=== PATIENT | female | born 2000 | race Caucasian/White ===

== ENCOUNTER 2022-07-09 09:49 | Emergency (ER) | payer MEDICAID, SELFPAY ==
[2022-07-09 09:52] VITALS: BP 140/102; PULSE 82; RESP 16; TEMP 36.7; O2SAT 100
--- NOTE | 2022-07-09 10:35 | W.ED.GENADLT ---
HPI - General Adult General: Chief complaint: Allergic Reaction Stated complaint: possible allergic reaction, face swelling Time Seen by Provider: 07/09/22 09:58 Source: patient Mode of arrival: ambulatory Limitations: no limitations History of Present Illness: Patient is a 22-year-old female who presents to ED today with multiple complaints. She states over the past 3 weeks she has had 3 separate episodes of left retro-orbital pain/headache. She states the pain will last approximately 3 days before subsiding on its own. She states she is asymptomatic in between episodes. She states yesterday she had an episode of epistaxis which was uncharacteristic for her as she has never had a nosebleed before. It was easily controlled and subsided on its own. Denies nasal trauma. Reports no history of allergies. Patient states this morning she woke up and the left side of her face was swollen and swelling even extended down into her neck. She states she took 50 mg of Benadryl with full improvement of her swelling. Upon arrival to the ED she states swelling has fully resolved and is essentially asymptomatic. Onset (ago): hour(s) Location: face Severity: mild Relieving factors: other (benadryl) Exacerbating factors: none Associated symptoms: Reports headache(s) (none currently); Deny chest pain, dyspnea, nausea, rash or vomiting Treatments prior to arrival: other (benadryl) Review of Systems Const: Denies: fever(s), chills, body aches or fatigue Eyes: Denies: change in vision, blurry vision, photophobia, eye discomfort, eye discharge, eye redness, floaters or seeing flashes ENMT: Reports: epistaxis (subsided) and other (facial swelling-subsided now); Denies: throat pain, enlarged tonsils, odynophagia, mouth pain, swelling of lips/tongue, oral sores, ear or mastoid pain, ear discharge, nasal discharge, nasal congestion, post nasal drip or sinus pain Card: Denies: chest pain Resp: Denies: dyspnea, productive cough or non-productive cough GI: Denies: nausea or vomiting Musc: Denies: neck pain, back pain, extremity pain or joint pain Skin/Breast: Denies: rash Neuro: Reports: headache(s) (none currently); Denies: numbness in extremities, weakness in extremities or sensory changes All/Imm: Denies: facial swelling or seasonal rhinorrhea Physical Exam Const: COMMON NORMALS: no acute distress, average body habitus, patient oriented x3, no limitations, healthy appearing, alert and well nourished GENERAL APPEARANCE: cooperative ORIENTATION/CONSCIOUSNESS: Yes awake, Yes oriented to person, Yes oriented to place and Yes oriented to time HENMT: COMMON NORMALS: normocephalic, atraumatic, hearing grossly normal bilaterally, external ears normal, EAC's normal, TM's normal bilaterally, Normal external nose present, moist oral mucous membranes, oropharynx normal, dentition normal and gingiva normal HEAD & SCALP: normal to inspection, normocephalic and atraumatic FACE & SINUS: normal facial exam, sinuses nontender and face symmetric NOSE: Normal external nose present, No nasal polyps present, Normal septum present and Abnormal mucous membranes and turbinates present erythematous; no Nasal discharge present and no Epistaxis present EXTERNAL EAR: Yes external ears normal EXTERNAL AUDITORY CANAL: EAC's normal TYMPANIC MEMBRANE: TM's normal bilaterally MOUTH: Normal oral and palatal mucosa present, lip normal and tongue normal TEETH & GINGIVA: Yes fair dentition; no caries THROAT: posterior oropharynx normal, tonsils normal and uvula midline Eye: COMMON NORMALS: Equal, round and reactive pupils present, EOMs intact bilaterally and conjunctivae normal GENERAL EYE: appearance normal, both eyes and all related structures and normal light reflex CONJUNCTIVA: Yes conjunctivae normal PUPIL: Yes Equal, round and reactive pupils present DIRECT OPHTHALMOSCOPY: Yes normal light reflex Neck/C-Spine: COMMON NORMALS: full ROM, no lymphadenopathy and no meningeal signs Resp: COMMON NORMALS: normal respiratory effort Extremity: COMMON NORMALS: normal to inspection, full ROM, capillary refill normal, no clubbing, cyanosis or edema and no pedal edema GENERAL: Yes normal exam except as noted Neuro: PIERRE COMA SCALE: document GCS findings Pierre coma scale eye opening: Spontaneous Pierre coma scale verbal response: Orientated [place] coma scale motor response: Obey commands Pierre coma scale total score: 15 COMMON NORMALS: patient oriented x3, CN's II-XII intact bilaterally, moves all extremities, no focal motor deficits, no sensory deficits noted and gait normal SENSORIUM/ORIENTATION: Yes alert, Yes oriented to person, Yes oriented to place and Yes oriented to time MENINGEAL SIGNS: Yes no meningeal signs Skin: COMMON NORMALS: no rashes or lesions noted GENERAL SKIN EXAM: no rashes or lesions noted Course Vital Signs: Vital signs: Vital Signs Temperature 98.0 F 07/09/22 09:52 Pulse Rate 75 07/09/22 11:35 Respiratory Rate 16 07/09/22 11:35 Blood Pressure 140/102 07/09/22 09:52 Pulse Oximetry 99 07/09/22 11:35 Oxygen Delivery Me thod Room Air 07/09/22 09:52 MDM - General Adult Medical Decision Making Etiology at this time is unknown. Considered migraine headache vs cluster headache (although no ipsilateral lacrimation, rhinorrhea, congestion). No neuro complaints on history to suggest cerebral venous/septic dural thrombosis. History/physical exam not consistent with a superior vena cava syndrome. Possible allergic component given complete resolution with Benadryl. Ultimately at time of my examination patient is asymptomatic. Recommend she keep a close observation on symptoms throughout the weekend and follow-up with primary care early next week. Return ED precautions given. Discharge Plan Discharge Patient Disposition: Home Clinical Impression: Facial swelling Condition: Stable Discharge Orders: Discharge ED (Routine); Ordered 07/09/22 Ordered By: Mine Chung Activity Restrictions/Additional Instructions: As we discussed monitor your symptoms closely over the next 24 to 72 hours. Please follow-up with your primary care provider early next week for reevaluation. You need to return to the emergency department for worsening swelling that does not improve with Benadryl, severe headache, visual changes or visual loss, fevers, seizures, trouble speaking, weakness or loss of use of arms/legs, facial drooping, or any other concerns you may have. Coding Level of Care Code ED Director Of Publications for Vinh Gee
[2022-07-09 11:35] VITALS: PULSE 75; RESP 16; O2SAT 99
--- NOTE | 2022-07-13 15:26 | DCPLANNER ---
litigation manager called patient due to no primary care physician - no answer at this time
== END 2022-07-09 11:35 | disposition home or self-care (01) ==
PROVIDERS: Emergency Provider Physician Assistant
DX: M79.89 Other specified soft tissue disorders (principal)
CPT/HCPCS: 99282

== ENCOUNTER 2023-11-30 20:22 | Emergency (ER) | payer MEDICAID, SELFPAY ==
[2023-11-30 20:29] VITALS: BP 141/101; PULSE 119; RESP 17; TEMP 36.6; O2SAT 99; BMI 23.8
--- NOTE | 2023-11-30 20:29 | ECG_ITS ---
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 Measurements Intervals [place] Rate: 118 P: 86 RI: 120 QRS: 96 QRSD: 97 T: 71 QT: 340 QTc: 477 Interpretive Statements SINUS TACHYCARDIA BORDERLINE RIGHT AXIS DEVIATION [QRS AXIS > 90] ABNORMAL RHYTHM ECG No previous ECG available for comparison Electronically Signed On 12-01-2023 16:45:10 CDT by Chrissy Peres M.D. [email or web address]
--- NOTE | 2023-11-30 20:30 | XRR_ITS ---
PROCEDURE INFORMATION: Exam: XR Chest Exam date and time: 11/30/2023 8:51 PM Age: 23 years old Clinical indication: Pain; Chest pressure; Additional info: Chest pain TECHNIQUE: Imaging protocol: Radiologic exam of the chest. Views: 1 view. COMPARISON: No relevant prior studies available. FINDINGS: Lungs: Unremarkable. No consolidation. Pleural spaces: Unremarkable. No pleural effusion. No pneumothorax. Heart/Mediastinum: Unremarkable. No cardiomegaly. Bones/joints: Unremarkable. XR/XR chest 1V portable [id number] IMPRESSION: No acute findings.
[2023-11-30 20:33] VITALS: BP 141/101; PULSE 113; RESP 20; O2SAT 97
--- NOTE | 2023-11-30 20:36 | W.ED.SOB ---
HPI - SOB/Dyspnea General: Chief Complaint: Shortness of Breath/Dyspnea Stated Complaint: Chest Tightness, SOB Time Seen by Provider: 11/30/23 20:28 History of Present Illness: HPI Narrative: 23-year-old female comes in today for complaints of shortness of breath and dyspnea x 1 week. Patient appears nontoxic. Patient had a recent travel to [place] about 3 weeks ago. Patient reports symptoms since then. Patient taken a COVID test last week which was negative. Patient was seen on Monday and diagnosed with bronchitis and started on steroids and antibiotic. Patient has a history of asthma as a child. Patient does routinely vape. Patient reports weight loss of 15 pounds over the last month. Patient does report some increased anxiety. Associated symptoms: Reports chest pain Related Data Allergies Allergy/AdvReac Type Severity Reaction Status Date / Time No Known Allergies Allergy Verified 07/09/22 09:57 Review of Systems General: Reports: 10 or more systems reviewed and unremarkable except in HPI and below Card: Reports: chest pain Resp: Reports: dyspnea Physical Exam Const: COMMON NORMALS: alert HENMT: COMMON NORMALS: normocephalic HEAD & SCALP: normocephalic THROAT: posterior oropharynx normal Neck/C-Spine: COMMON NORMALS: full ROM Resp: COMMON NORMALS: normal respiratory effort and clear to auscultation bilaterally AUSCULTATION: clear to auscultation bilaterally Cardio: COMMON NORMALS: regular rhythm RATE: tachycardic RHYTHM: regular rhythm GI: COMMON NORMALS: Soft to palpation and non-tender PALPATION: Yes Soft to palpation Back/Pelvis: COMMON NORMALS: thoracic and lumbar spine normal to inspection Extremity: COMMON NORMALS: no pedal edema Neuro: SENSORIUM/ORIENTATION: Yes alert Skin: COMMON NORMALS: turgor normal GENERAL SKIN EXAM: turgor normal Course Vital Signs: Vital signs: Vital Signs Temperature 97.8 F 11/30/23 20:29 Pulse Rate 98 11/30/23 22:09 Respiratory Rate 20 H 11/30/23 22:09 Blood Pressure 113/64 11/30/23 22:09 Pulse Oximetry 99 11/30/23 22:09 Oxygen Delivery Me thod Room Air 11/30/23 20:33 MDM - SOB/Dyspnea Medical Decision Making 23-year-old female comes in today for complaints of chest pain and shortness of breath. Patient appears nontoxic. Patient denies any chronic medical problems. Patient was seen above the and diagnosed with bronchitis and started on steroids. Patient moves all extremities well. Vital signs are normal except for some tachycardia. Differential diagnosis includes adverse drug effect, pneumonia, hyperthyroidism, anxiety disorder. CBC noted some mild leukocytosis of 11,000. CMP was unremarkable. TSH was normal. hCG was negative. D-dimer was normal. Patient was negative for COVID, flu, RSV. Chest x-ray was normal. Reviewed exam with patient believe that she most likely had a adverse effect of steroids causing increased anxiety and chest discomfort. Recommended cessation of steroid. Reassured patient that with bronchitis the body will usually resolve on its own without medication use. Patient reported understanding of care plan. Patient was given 1 mg of lorazepam x 1 in the ER for anxiety. Patient had improvement of symptoms and was discharged home. Lab Data 11/30/23 20:37 11/30/23 20:37 Labs/Radiology: Radiology Impressions Chest X-Ray 11/30/23 20:30 IMPRESSION: No acute findings. Laboratory Results WBC 11.92 10^3/uL (3.29-11.43) H 11/30/23 20:37 RBC 4.49 10^6/uL (3.85-5.65) 11/30/23 20:37 Hgb 13.30 g/dL (11.27-16.99) 11/30/23 20:37 Hct 40.4 % (36-47) 11/30/23 20:37 MCV 90.0 fl (85-98) 11/30/23 20:37 MCH 29.6 pg (27-33) 11/30/23 20:37 MCHC 32.9 g/dL (30-55) 11/30/23 20:37 RDW 11.9 % (12.1-15.1) L 11/30/23 20:37 Plt Count 368 10^3/cmm (157-399) 11/30/23 20:37 MPV 9.5 fL (7.4-10.4) 11/30/23 20:37 Neut % (Auto) 75.4 % 11/30/23 20:37 Lymph % (Auto) 18.4 % 11/30/23 20:37 [place] % (Auto) 4.9 % 11/30/23 20:37 Eos % (Auto) 0.6 % 11/30/23 20:37 Baso % (Auto) 0.3 % 11/30/23 20:37 Neut # (Auto) 8.99 10^3/uL (1.8-7.7) H 11/30/23 20:37 Lymph # (Auto) 2.2 10^3/uL (0.8-4.8) 11/30/23 20:37 [place] # (Auto) 0.6 10^3/uL (0.2-0.9) 11/30/23 20:37 Eos # (Auto) 0.1 10^3/uL (0.0-0.8) 11/30/23 20:37 Baso # (Auto) 0.0 10^3/uL (0.0-0.1) 11/30/23 20:37 Nucleated RBC % (auto) 0 % 11/30/23 20:37 Nucleated RBCs # 0.0 /100WBC 11/30/23 20:37 D-Dimer 0.31 ug/mLFEU (0-0.59) 11/30/23 20:37 Sodium 142 mmol/L (136-145) 11/30/23 20:37 Potassium 3.5 mmol/L (3.5-5.1) 11/30/23 20:37 Chloride 103 mmol/L (98-107) 11/30/23 20:37 Carbon Dioxide 24 mmol/L (22-29) 11/30/23 20:37 Anion Gap 18.5 (5-19) 11/30/23 20:37 BUN 12 mg/dL (6-20) 11/30/23 20:37 Creatinine 0.6 mg/dL (0.5-0.9) 11/30/23 20:37 GFR Calculation 122.8 mL/min (90-130) 11/30/23 20:37 Glucose 101 mg/dL (65-115) 11/30/23 20:37 Calculated Osmolality 294 mOsm/kg (285-295) 11/30/23 20:37 Calcium 9.9 mg/dL (8.5-10.5) 11/30/23 20:37 Total Bilirubin 0.2 mg/dL (0.15-1.2) 11/30/23 20:37 AST 17 U/L (0-32) 11/30/23 20:37 ALT 14 U/L (0-33) 11/30/23 20:37 Alkaline Phosphatase 66 U/L (35-105) 11/30/23 20:37 Total Protein 8.2 g/dL (6.6-8.7) 11/30/23 20:37 Albumin 5.0 g/dL (3.5-5.2) 11/30/23 20:37 Globulin 3.2 g/dL (1.3-4.6) 11/30/23 20:37 Lipase 45 U/L (13-60) 11/30/23 20:37 TSH 2.86 uIU/mL (0.27-4.20) 11/30/23 20:37 HCG, Qual Negative (Negative) 11/30/23 20:37 Urine Color Yellow (Yellow) 11/30/23 20:53 Urine Appearance Clear (CLEAR) 11/30/23 20:53 Urine pH 6.5 (5-7) 11/30/23 20:53 Ur Specific [place] 1.008 (1.005-1.030) 11/30/23 20:53 Urine Protein Negative (Negative) 11/30/23 20:53 Urine Glucose (UA) Negative (Normal) 11/30/23 20:53 Urine Ketones Negative (Negative) 11/30/23 20:53 Urine Blood Negative (Negative) 11/30/23 20:53 Urine Nitrate Negative (Negative) 11/30/23 20:53 Urine Bilirubin Negative (Negative) 11/30/23 20:53 Urine Urobilinogen 0.2 mg/dL (Negative) 11/30/23 20:53 Ur Leukocyte Esterase Negative (Negative) 11/30/23 20:53 Urine RBC 0-2 /hpf (0-2) 11/30/23 20:53 Urine WBC 0-5 /hpf (0-5) 11/30/23 20:53 Ur Squamous Epith Cells 0-5 /hpf (0-5) 11/30/23 20:53 Amorphous Sediment Not Reportable 11/30/23 20:53 Urine Bacteria None seen /hpf (NONE) 11/30/23 20:53 Hyaline Casts 0.81 /lpf 11/30/23 20:53 Coronavirus (PCR) Negative (Negative) 11/30/23 20:53 Influenza A (PCR) Negative (Negative) 11/30/23 20:53 Influenza Type B (PCR) Negative (Negative) 11/30/23 20:53 RSV (PCR) Negative (Negative) 11/30/23 20:53 All radiology interpretation(s) finalized by discharge Discharge Plan Discharge Patient Disposition: Home Clinical Impression: Bronchitis Adverse effect of drug/medicinal Qualifiers: Encounter type: initial encounter Qualified Code(s): T50.905A - Adverse effect of unspecified drugs, medicaments and biological substances, initial encounter Condition: Stable Discharge Orders: Discharge ED (Routine); Ordered 11/30/23 Ordered By: Dru Tristan Discharge Diet: Usual diet Discharge Activity: Increase activity as tolerated Patient Instructions: Bronchitis (Acute) - Adult Activity Restrictions/Additional Instructions: Stop steroid medication. Continue with routine activities as tolerated. Drink plenty of water and fluids. Use acetaminophen and ibuprofen for pain. Stand Alone Forms: Work/School Release Coding Level of Care Code ED Tyre Builder for Vinh Gee
[2023-11-30 21:01] LABS: Basophils % 0.3 %; Eosinophils # 0.1 10^3/uL (0.0-0.8); Eosinophils % 0.6 %; Hematocrit 40.4 % (36-47); Lymphocytes # 2.2 10^3/uL (0.8-4.8); Lymphocytes % 18.4 %; Mean Corpuscular HGB Conc 32.9 g/dL (30-55); Mean Corpuscular Hemoglobin 29.6 pg (27-33); Mean Platelet Volume 9.5 fL (7.4-10.4); Monocytes # 0.6 10^3/uL (0.2-0.9); Monocytes % 4.9 %; Neutrophils # 8.99 10^3/uL (1.8-7.7); Neutrophils % 75.4 %; Nucleated Red Blood Cells % 0 %; Platelet Count 368 10^3/cmm (157-399); Red Blood Count 4.49 10^6/uL (3.85-5.65); Red Cell Distribution Width 11.9 % (12.1-15.1); White Blood Count 11.92 10^3/uL (3.29-11.43)
[2023-11-30 21:17] LABS: HCG, Serum Qual Negative (Negative)
[2023-11-30 21:34] LABS: D Dimer 0.31 ug/mLFEU (0-0.59)
[2023-11-30 21:35] LABS: Covid PCR NEGATIVE (Negative); Influenza A NEGATIVE (Negative); Influenza B NEGATIVE (Negative); Respiratory Syncytial Virus Ce NEGATIVE (Negative)
[2023-11-30 21:38] LABS: Alanine Aminotransferase 14 U/L (0-33); Alkaline Phosphatase 66 U/L (35-105); Anion Gap 18.5 (5-19); Aspartate Amino Transferase 17 U/L (0-32); Blood Urea Nitrogen 12 mg/dL (6-20); Calcium 9.9 mg/dL (8.5-10.5); Carbon Dioxide 24 mmol/L (22-29); Chloride 103 mmol/L (98-107); Creatinine Clr Calc Pharmacy 122.4439; Globulin 3.2 g/dL (1.3-4.6); Glomerular Filtration Rate 122.8 mL/min (90-130); Glucose 101 mg/dL (65-115); Lipase 45 U/L (13-60); Osmolality Calculated 294 mOsm/kg (285-295); Potassium 3.5 mmol/L (3.5-5.1); Sodium 142 mmol/L (136-145); Thyroid Stimulating Hormone 2.86 uIU/mL (0.27-4.20); Total Bilirubin 0.2 mg/dL (0.15-1.2); Total Protein 8.2 g/dL (6.6-8.7)
[2023-11-30] MEDS: LORazepam 2 mg/mL INJ 1 mL 1 MG IVP (21:38)
[2023-11-30 21:39] LABS: Bacteria Urine None Seen /hpf; Hyaline Casts Urine 0.81 /lpf; RBC Urine 0-2 /hpf (0-2); Squamous Epithelial Cell Urine 0-5 /hpf (0-5); WBC Urine 0-5 /hpf (0-5)
[2023-11-30 21:43] VITALS: BP 121/80; PULSE 100; O2SAT 100
[2023-11-30 21:54] LABS: Add Urine Microscopic? YES; Bilirubin Urine Negative (Negative); Blood Urine Negative (Negative); Glucose Urine UA Negative (Normal); Ketones Urine Negative (Negative); Leukocyte Esterase Urine Negative (Negative); Nitrate Urine Negative (Negative); Protein Urine Negative (Negative); Specific Gravity, Urine 1.008 (1.005-1.030); Urine Appearance Clear (CLEAR); Urine Color Yellow (Yellow); Urobilinogen Urine 0.2 mg/dL (Negative); pH Urine 6.5 (5-7)
[2023-11-30 22:09] VITALS: BP 113/64; PULSE 98; RESP 20; O2SAT 99
[2023-11-30 23:09] VITALS: BP 107/62; PULSE 103; O2SAT 100
== END 2023-11-30 22:45 | disposition home or self-care (01) ==
PROVIDERS: Emergency Provider Nurse Practitioner Family
DX: J40 Bronchitis, not specified as acute or chronic (principal); T38.0X5A Adverse effect of glucocorticoids and synthetic analogues, initial encounter
CPT/HCPCS: 0241U; 71045; 80053; 81001; 83690; 84443; 84703; 85025; 85378; 93005; 96374; 99285; J2060

== ENCOUNTER 2024-04-18 19:12 | Emergency (ER) | payer MEDICAID, SELFPAY ==
[2024-04-18 19:24] VITALS: BP 113/76; PULSE 82; RESP 20; TEMP 36.8; O2SAT 100; BMI 21.9
--- NOTE | 2024-04-18 19:53 | USR_ITS ---
PROCEDURE INFORMATION: Exam: US , Transvaginal Exam date and time: 04/18/2024 9:09 PM Age: 23 years old Clinical indication: complicated by abdominal or pelvic pain; Generalized abdominal pain; First trimester (<14 weeks 0 days); Gestational age or lmp: 8w 2d by lmp; ; G4-p1-a2-l1 with cramping, no vag bleed; Additional info: 8 wks? Pain/cramping LABS AND CLINICAL REPORTS: Last menstrual period start date: 02/20/2024 Gestational age (Established): 8 w 2 d Estimated due date (Established): 11/26/2024 TECHNIQUE: Imaging protocol: Real-time transvaginal obstetrical ultrasound of the maternal pelvis with image documentation. Transvaginal imaging was used for better evaluation of the fetus, adnexa, and/or cervix. COMPARISON: No relevant prior studies available. FINDINGS: Gestation: Intrauterine gestation is visualized. pole is visualized. Yolk sac is visualized. There is a single live intrauterine gestation. heart rate: 163 bpm. heart rate of 163 bpm. BIOMETRY: Gestational age (AUA): 8 w 5 d Estimated due date (AUA): 11/23/2024 [place] rump length (CRL): 20.5 mm. EGA (CRL) is 8 w 5 d MATERNAL: Uterus: Uterus measures 13.21 cm x 8.07 cm x 5.53 cm. Right ovary/adnexa: Right ovary measures 4.6 cm x 3.6 cm x 3.4 cm. Right ovarian volume is 29.2 mL. The right ovary measures 4.6 x 3.6 x 3.4 cm. There is a corpus luteal cyst right ovary measuring 1.5 cm. Left ovary/adnexa: Left ovary measures 4.1 cm x 3.2 cm x 1.9 cm. Left ovarian volume is 13.1 mL. The left ovary measures 4.1 x 3.2 x 1.9 cm. Other findings: Estimated age by ultrasound is 8 weeks and 5 days. [place] to rump length of 2.0 cm. US/US OB <= 14 weeks fetus [id number] IMPRESSION: Single live intrauterine gestation as above.
--- NOTE | 2024-04-18 20:31 | ED_ITS ---
HPI - Abdominal Pain 2 General: Chief Complaint: Abdominal Pain Stated Complaint: doc sent for dehydration 8wk preg Time Seen by Provider: 04/18/24 20:24 History of Present Illness: Patient presents to the ER sent by Dr. Nelson OB with a complaint of lower abdominal pain and cramping and headache with mild nausea. Patient says she is approximately 8 weeks . Patient has had 2 miscarriages in the past. Patient has tried pushing fluids and taking Tylenol throughout the day which has not helped. Patient was told to come in for further evaluation and fluids. Related Data Allergies Allergy/AdvReac Type Severity Reaction Status Date / Time No Known Allergies Allergy Verified 07/09/22 09:57 Review of Systems 2 General: Reports: 10 or more systems reviewed and unremarkable except in HPI and below Physical Exam 2 Const: COMMON NORMALS: no acute distress, average body habitus, patient oriented x3, no limitations, healthy appearing, alert and well nourished HENMT: COMMON NORMALS: normocephalic, atraumatic, hearing grossly normal bilaterally, external ears normal, Normal external nose present and moist oral mucous membranes HEAD & SCALP: normocephalic and atraumatic NOSE: Normal external nose present EXTERNAL EAR: Yes external ears normal Neck/C-Spine: COMMON NORMALS: no JVD Chest: COMMONS NORMALS: normal inspection of the chest and normal palpation of entire chest wall Resp: COMMON NORMALS: normal respiratory effort, No retractions, No use of accessory muscles and clear to auscultation bilaterally AUSCULTATION: clear to auscultation bilaterally Cardio: COMMON NORMALS: no JVD, regular rate, regular rhythm, S1 normal heart sound present, S2 normal heart sound present, No gallops present (Cardio), No clicks present (Cardio), No murmurs present (Cardio) and No rub (Cardio) R ATE: regular rate RHYTHM: regular rhythm HEART SOUNDS: S1 normal heart sound present and S2 normal heart sound present GI: COMMON NORMALS: Normal to inspection, nondistended, normoactive bowel sounds present, Soft to palpation, non-tender, No hepatosplenomegaly present and no masses PALPATION: Yes Soft to palpation and Yes No hepatosplenomegaly present Neuro: COMMON NORMALS: patient oriented x3 SENSORIUM/ORIENTATION: Yes alert Course 2 Vital Signs: Vital signs: Vital Signs Temperature 98.2 F 04/18/24 19:24 Pulse Rate 80 04/18/24 21:04 Respiratory Rate 16 04/18/24 21:04 Blood Pressure 108/68 04/18/24 21:04 Pulse Oximetry 100 04/18/24 21:04 MDM - Abdominal Pain Medical Decision Making Patient is a believe normal saline bolus, 4 mg Zofran, lab work was unremarkable, Limited OB ultrasound showed live intrauterine gestation. These results was discussed with the patient. Patient be discharged home. Patient is feeling much better. Medical Records I reviewed the patient's medical records. Lab Data I reviewed the patient's lab results. 04/18/24 20:46 04/18/24 20:46 Labs/Radiology: Radiology Impressions Ultrasound 04/18/24 19:53 IMPRESSION: Single live intrauterine gestation as above. Laboratory Results WBC 7.05 10^3/uL (3.29-11.43) 04/18/24 20:46 RBC 3.97 10^6/uL (3.85-5.65) 04/18/24 20:46 Hgb 11.80 g/dL (11.27-16.99) 04/18/24 20:46 Hct 35.2 % (36-47) L 04/18/24 20:46 MCV 88.7 fl (85-98) 04/18/24 20:46 MCH 29.7 pg (27-33) 04/18/24 20:46 MCHC 33.5 g/dL (30-55) 04/18/24 20:46 RDW 11.9 % (12.1-15.1) L 04/18/24 20:46 Plt Count 305 10^3/cmm (157-399) 04/18/24 20:46 MPV 9.5 fL (7.4-10.4) 04/18/24 20:46 Neut % (Auto) 60.2 % 04/18/24 20:46 Lymph % (Auto) 31.1 % 04/18/24 20:46 [place] % (Auto) 6.5 % 04/18/24 20:46 Eos % (Auto) 1.6 % 04/18/24 20:46 Baso % (Auto) 0.3 % 04/18/24 20:46 Neut # (Auto) 4.25 10^3/uL (1.8-7.7) 04/18/24 20:46 Lymph # (Auto) 2.2 10^3/uL (0.8-4.8) 04/18/24 20:46 [place] # (Auto) 0.5 10^3/uL (0.2-0.9) 04/18/24 20:46 Eos # (Auto) 0.1 10^3/uL (0.0-0.8) 04/18/24 20:46 Baso # (Auto) 0.0 10^3/uL (0.0-0.1) 04/18/24 20:46 Nucleated RBC % (auto) 0 % 04/18/24 20:46 Nucleated RBCs # 0.0 /100WBC 04/18/24 20:46 Sodium 137 mmol/L (136-145) 04/18/24 20:46 Potassium 3.8 mmol/L (3.5-5.1) 04/18/24 20:46 Chloride 103 mmol/L (98-107) 04/18/24 20:46 Carbon Dioxide 23 mmol/L (22-29) 04/18/24 20:46 Anion Gap 14.8 (5-19) 04/18/24 20:46 BUN 7 mg/dL (6-20) 04/18/24 20:46 Creatinine 0.5 mg/dL (0.5-0.9) 04/18/24 20:46 GFR Calculation 151.6 mL/min (90-130) H 04/18/24 20:46 Glucose 87 mg/dL (65-115) 04/18/24 20:46 Calculated Osmolality 281 mOsm/kg (285-295) L 04/18/24 20:46 Calcium 8.9 mg/dL (8.5-10.5) 04/18/24 20:46 Total Bilirubin 0.2 mg/dL (0.15-1.2) 04/18/24 20:46 AST 13 U/L (0-32) 04/18/24 20:46 ALT 13 U/L (0-33) 04/18/24 20:46 Alkaline Phosphatase 49 U/L (35-105) 04/18/24 20:46 Total Protein 6.5 g/dL (6.6-8.7) L 04/18/24 20:46 Albumin 4.3 g/dL (3.5-5.2) 04/18/24 20:46 Globulin 2.2 g/dL (1.3-4.6) 04/18/24 20:46 Ser , Semi-Qnt 476960.00 mIU/mL 04/18/24 20:46 Urine Color Yellow (Yellow) 04/18/24 21:35 Urine Appearance Clear (CLEAR) 04/18/24 21:35 Urine pH 7.0 (5-7) 04/18/24 21:35 Ur Specific [place] 1.009 (1.005-1.030) 04/18/24 21:35 Urine Protein Negative (Negative) 04/18/24 21:35 Urine Glucose (UA) Negative (Normal) 04/18/24 21:35 Urine Ketones Negative (Negative) 04/18/24 21:35 Urine Blood Negative (Negative) 04/18/24 21:35 Urine Nitrate Negative (Negative) 04/18/24 21:35 Urine Bilirubin Negative (Negative) 04/18/24 21:35 Urine Urobilinogen 0.2 mg/dL (Negative) 04/18/24 21:35 Ur Leukocyte Esterase Negative (Negative) 04/18/24 21:35 Urine RBC 0-2 /hpf (0-2) 04/18/24 21:35 Urine WBC 0-5 /hpf (0-5) 04/18/24 21:35 Ur Squamous Epith Cells 0-5 /hpf (0-5) 04/18/24 21:35 Amorphous Sediment Not Reportable 04/18/24 21:35 Urine Bacteria 1+ /hpf (NONE) H 04/18/24 21:35 Hyaline Casts 0.40 /lpf 04/18/24 21:35 All radiology interpretation(s) finalized by discharge Discharge Plan Discharge Patient Disposition: Home Clinical Impression: Qualifiers: Weeks of gestation: 8 weeks Qualified Code(s): Z3A.08 - 8 weeks gestation of Condition: Stable Discharge Orders: Discharge ED (Routine); Ordered 04/18/24 Ordered By: Claude Belcher Patient Instructions: (ED) Activity Restrictions/Additional Instructions: Thank you for choosing [facility] for your healthcare needs today. Please realize that you were seen in the emergency department and that we are providing you with an emergency medical screening exam and this may not be a complete and all exclusive of all testing and/or medical workup we may need to determine your element or severity of your illness. It is very important that you follow-up as instructed with your primary care provider or specialist for the additional evaluation and to discuss your medical treatment plan. You may return to the emergency department should you have concerns or if your condition changes or worsens in any way. Coding Level of Care Code ED Silverware Buffing Machine Operator for Vinh Gee
[2024-04-18 20:57] LABS: Basophils % 0.3 %; Eosinophils # 0.1 10^3/uL (0.0-0.8); Eosinophils % 1.6 %; Hematocrit 35.2 % (36-47); Lymphocytes # 2.2 10^3/uL (0.8-4.8); Lymphocytes % 31.1 %; Mean Corpuscular HGB Conc 33.5 g/dL (30-55); Mean Corpuscular Hemoglobin 29.7 pg (27-33); Mean Corpuscular Volume 88.7 fl (85-98); Mean Platelet Volume 9.5 fL (7.4-10.4); Monocytes # 0.5 10^3/uL (0.2-0.9); Monocytes % 6.5 %; Neutrophils # 4.25 10^3/uL (1.8-7.7); Neutrophils % 60.2 %; Nucleated Red Blood Cells % 0 %; Platelet Count 305 10^3/cmm (157-399); Red Blood Count 3.97 10^6/uL (3.85-5.65); Red Cell Distribution Width 11.9 % (12.1-15.1); White Blood Count 7.05 10^3/uL (3.29-11.43)
[2024-04-18] MEDS: sodium chloride 0.9% 1,000 ML 999 ML IV (20:59)
[2024-04-18] MEDS: ondansetron 2 mg/ML SDV 2 mL 4 MG IVP (20:59)
[2024-04-18 21:04] VITALS: BP 108/68; PULSE 80; RESP 16; O2SAT 100
[2024-04-18 21:40] LABS: Alanine Aminotransferase 13 U/L (0-33); Albumin Level 4.3 g/dL (3.5-5.2); Alkaline Phosphatase 49 U/L (35-105); Anion Gap 14.8 (5-19); Aspartate Amino Transferase 13 U/L (0-32); Blood Urea Nitrogen 7 mg/dL (6-20); Calcium 8.9 mg/dL (8.5-10.5); Carbon Dioxide 23 mmol/L (22-29); Chloride 103 mmol/L (98-107); Creatinine Clr Calc Pharmacy 141.9632; Globulin 2.2 g/dL (1.3-4.6); Glomerular Filtration Rate 151.6 mL/min (90-130); Glucose 87 mg/dL (65-115); Osmolality Calculated 281 mOsm/kg (285-295); Potassium 3.8 mmol/L (3.5-5.1); Sodium 137 mmol/L (136-145); Total Bilirubin 0.2 mg/dL (0.15-1.2); Total Protein 6.5 g/dL (6.6-8.7)
[2024-04-18 22:00] LABS: Bilirubin Urine Negative (Negative); Blood Urine Negative (Negative); Glucose Urine UA Negative (Normal); Ketones Urine Negative (Negative); Leukocyte Esterase Urine Negative (Negative); Nitrate Urine Negative (Negative); Protein Urine Negative (Negative); Specific Gravity, Urine 1.009 (1.005-1.030); Urine Appearance Clear (CLEAR); Urine Color Yellow (Yellow); Urobilinogen Urine 0.2 mg/dL (Negative)
[2024-04-18 22:05] LABS: Add Urine Microscopic? YES; Bacteria Urine 1+ /hpf; RBC Urine 0-2 /hpf (0-2); Squamous Epithelial Cell Urine 0-5 /hpf (0-5); WBC Urine 0-5 /hpf (0-5)
[2024-04-18 23:10] VITALS: BP 108/73; PULSE 76; RESP 16; O2SAT 100
== END 2024-04-18 23:11 | disposition home or self-care (01) ==
PROVIDERS: Physician Assistant; Emergency Provider Emergency Medicine
DX: R10.30 Lower abdominal pain, unspecified (principal); Z3A.08 8 weeks gestation of pregnancy
CPT/HCPCS: 36415; 76801; 80053; 81001; 84702; 85025; 96374; 99284; J2405; J7030

== ENCOUNTER 2024-05-08 17:18 | Emergency (ER) | payer MEDICAID, SELFPAY ==
[2024-05-08 17:21] VITALS: BP 123/88; PULSE 100; RESP 14; TEMP 36.9; O2SAT 100; BMI 22.8
[2024-05-08 17:34] VITALS: PULSE 98; O2SAT 100
--- NOTE | 2024-05-08 17:45 | ED_ITS ---
HPI - Headache 2 General: Chief Complaint: Headache Stated Complaint: stroke symptoms Time Seen by Provider: 05/08/24 17:30 Source: patient Mode of arrival: ambulatory Limitations: no limitations History of Present Illness: Patient is a 23-year-old female who is currently 11-1/2 weeks , , presenting to the emergency department with headache beginning around 1430 today. States that she has had intermittent visual changes of her right eye, stating this is blurry. States she has had headaches throughout her , has no diagnosis of migraines does not take anything prophylactically for migraine headaches. She states that the pain starts in the back of her head and wraps around the top of her head to retro-orbital region bilaterally. Denies any vomiting, trouble walking, or other focal neurological deficits. She is reporting some nausea. She was seen here in the emergency department recently for dehydration, was treated and discharged home without complication. She states that she has intermittent cramping but this has been going on throughout , no change in this. No vaginal bleeding. No history of strokes or other pertinent cardiac history. She did take Tylenol sometime before coming in. MD elicited complaint: headache Onset (ago): hour(s) Time: 14:30 Onset description: gradually Location: occipital, retro-orbital and parietal Severity: severe Quality & Timing: throbbing and constant Exacerbating factors: exertion, light and noise Relieving factors: nothing Associated symptoms: Reports nausea; Deny chest pain, fever(s), lightheadedness, rash or vomiting Treatments prior to arrival: acetaminophen Related Data Allergies Allergy/AdvReac Type Severity Reaction Status Date / Time No Known Allergies Allergy Verified 05/08/24 17:27 Review of Systems 2 General: Reports: 10 or more systems reviewed and unremarkable except in HPI and below Const: Denies: fever(s), chills or fatigue Eyes: Denies: change in vision ENMT: Denies: throat pain, ear or mastoid pain or nasal discharge Card: Denies: chest pain, palpitations, swelling of feet/ankles or lightheadedness Resp: Denies: dyspnea, productive cough or wheezing GI: Reports: nausea and GI cramping; Denies: abdominal pain, vomiting, diarrhea or constipation : Denies: flank pain, difficulty voiding, dysuria or urinary frequency Musc: Denies: neck pain, back pain or joint pain Skin/Breast: Denies: rash Neuro: Reports: headache(s); Denies: numbness in extremities, weakness in extremities, dizziness, Slurred speech present or seizure-like activity Physical Exam 2 Const: COMMON NORMALS: no acute distress, patient oriented x3 and no limitations GENERAL APPEARANCE: cooperative and well developed O RIENTATION/CONSCIOUSNESS: Yes awake, Yes oriented to person, Yes oriented to place and Yes oriented to time OTHER: Uncomfortable appearing, requiring dark environment HENMT: COMMON NORMALS: normocephalic, atraumatic, hearing grossly normal bilaterally and moist oral mucous membranes HEAD & SCALP: normocephalic and atraumatic Eye: COMMON NORMALS: Equal, round and reactive pupils present, EOMs intact bilaterally and conjunctivae normal CONJUNCTIVA: Yes conjunctivae normal P UPIL: Yes Equal, round and reactive pupils present OTHER: No nystagmus, eyes track midline Neck/C-Spine: COMMON NORMALS: full ROM, supple and no JVD Resp: COMMON NORMALS: normal respiratory effort, No retractions, No use of accessory muscles and clear to auscultation bilaterally AUSCULTATION: clear to auscultation bilaterally Cardio: COMMON NORMALS: no JVD, regular rhythm, No clicks present (Cardio), No murmurs present (Cardio) and No rub (Cardio) RATE: tachycardic RHYTHM: r egular rhythm GI: COMMON NORMALS: Normal to inspection, nondistended, normoactive bowel sounds present and Soft to palpation AUSCULTATION: Yes normoactive bowel sounds PALPATION: Yes Soft to palpation RECTAL EXAM: deferred OTHER: Mild lower abdominal tenderness to palpation bilaterally Extremity: COMMON NORMALS: normal to inspection, full ROM and capillary refill normal Neuro: COMMON NORMALS: patient oriented x3, CN's II-XII intact bilaterally, moves all extremities, no focal motor deficits and no sensory deficits noted SENSORIUM/ORIENTATION: Yes oriented to person, Yes oriented to place and Yes oriented to time COORDINATION/BALANCE: [id number] test normal SPEECH: speech normal MOTOR EXAM: 5/5 motor strength present throughout, Pronator motor function not present, no tremor noted and no asterixis COORDINATION: f [id number] test normal Skin: COMMON NORMALS: no rashes or lesions noted GENERAL SKIN EXAM: no rashes or lesions noted Course 2 Vital Signs: Vital signs: Vital Signs Temperature 98.4 F 05/08/24 17:21 Pulse Rate 110 H 05/08/24 18:00 Respiratory Rate 14 05/08/24 17:21 Blood Pressure 117/77 05/08/24 18:00 Pulse Oximetry 100 05/08/24 18:00 Oxygen Delivery Me thod Room Air 05/08/24 18:00 MDM - Headache Medical Decision Making Patient 11/2 weeks , had migraine headache starting few hours prior to arrival. Neurologically and exam completely intact. Chronic abdominal cramping reported, no new concerns here and there was no reports of vaginal bleeding. No known history of migraine she does not take anything prophylactically. Ordered some basic labs all of which were unremarkable, showing quantitative hCG within appropriate timeframe of , normal hemoglobin, normal kidney function. Vitals have also been stable throughout ED stay, she was treated with IV fluids, Benadryl, and Reglan, also given p.o. Tylenol here and upon recheck states that she was feeling much better. I am suspecting migraine during , however referred her back to her OB for further outpatient evaluation of which she agrees with. She is ready to go home at this time, verbalized understanding to return precautions. Lab Data 05/08/24 17:45 05/08/24 17:45 Laboratory Results WBC 8.06 10^3/uL (3.29-11.43) 05/08/24 17:45 RBC 3.90 10^6/uL (3.85-5.65) 05/08/24 17:45 Hgb 11.40 g/dL (11.27-16.99) 05/08/24 17:45 Hct 33.8 % (36-47) L 05/08/24 17:45 MCV 86.7 fl (85-98) 05/08/24 17:45 MCH 29.2 pg (27-33) 05/08/24 17:45 MCHC 33.7 g/dL (30-55) 05/08/24 17:45 RDW 12.0 % (12.1-15.1) L 05/08/24 17:45 Plt Count 335 10^3/cmm (157-399) 05/08/24 17:45 MPV 9.3 fL (7.4-10.4) 05/08/24 17:45 Neut % (Auto) 61.6 % 05/08/24 17:45 Lymph % (Auto) 31.6 % 05/08/24 17:45 [place] % (Auto) 5.0 % 05/08/24 17:45 Eos % (Auto) 1.2 % 05/08/24 17:45 Baso % (Auto) 0.4 % 05/08/24 17:45 Neut # (Auto) 4.96 10^3/uL (1.8-7.7) 05/08/24 17:45 Lymph # (Auto) 2.6 10^3/uL (0.8-4.8) 05/08/24 17:45 [place] # (Auto) 0.4 10^3/uL (0.2-0.9) 05/08/24 17:45 Eos # (Auto) 0.1 10^3/uL (0.0-0.8) 05/08/24 17:45 Baso # (Auto) 0.0 10^3/uL (0.0-0.1) 05/08/24 17:45 Nucleated RBC % (auto) 0 % 05/08/24 17:45 Nucleated RBCs # 0.0 /100WBC 05/08/24 17:45 Sodium 137 mmol/L (136-145) 05/08/24 17:45 Potassium 3.7 mmol/L (3.5-5.1) 05/08/24 17:45 Chloride 102 mmol/L (98-107) 05/08/24 17:45 Carbon Dioxide 22 mmol/L (22-29) 05/08/24 17:45 Anion Gap 16.7 (5-19) 05/08/24 17:45 BUN 11 mg/dL (6-20) 05/08/24 17:45 Creatinine 0.5 mg/dL (0.5-0.9) 05/08/24 17:45 GFR Calculation 151.6 mL/min (90-130) H 05/08/24 17:45 Glucose 83 mg/dL (65-115) 05/08/24 17:45 Calculated Osmolality 283 mOsm/kg (285-295) L 05/08/24 17:45 Calcium 9.5 mg/dL (8.5-10.5) 05/08/24 17:45 Total Bilirubin 0.2 mg/dL (0.15-1.2) 05/08/24 17:45 AST 15 U/L (0-32) 05/08/24 17:45 ALT 12 U/L (0-33) 05/08/24 17:45 Alkaline Phosphatase 51 U/L (35-105) 05/08/24 17:45 Total Protein 6.8 g/dL (6.6-8.7) 05/08/24 17:45 Albumin 4.3 g/dL (3.5-5.2) 05/08/24 17:45 Globulin 2.5 g/dL (1.3-4.6) 05/08/24 17:45 Ser , Semi-Qnt 25633.00 mIU/mL 05/08/24 17:45 No radiology studies performed this visit Discharge Plan Discharge Patient Disposition: Home Clinical Impression: Migraine Qualifiers: Migraine type: unspecified Status migrainosus presence: with status migrainosus Intractability: intractable Qualified Code(s): G43.911 - Migraine, unspecified, intractable, with status migrainosus Condition: Stable Discharge Orders: Discharge ED (Routine); Ordered 05/08/24 Ordered By: Miky Hanson Patient Instructions: Migraine Headache (ED) Activity Restrictions/Additional Instructions: Drink plenty of water. Follow-up with your OB as we discussed. Tylenol for headaches. May also take Benadryl. Please return with any vaginal bleeding, abdominal pain, or any other concerns that you have. Print Language: Greenlandic Coding Level of Care Code ED [employer] Specialist for Vinh Gee
[2024-05-08] MEDS: sodium chloride 0.9% 1,000 ML 999 ML IV (17:51)
[2024-05-08 17:53] LABS: Basophils % 0.4 %; Eosinophils # 0.1 10^3/uL (0.0-0.8); Eosinophils % 1.2 %; Hematocrit 33.8 % (36-47); Lymphocytes # 2.6 10^3/uL (0.8-4.8); Lymphocytes % 31.6 %; Mean Corpuscular HGB Conc 33.7 g/dL (30-55); Mean Corpuscular Hemoglobin 29.2 pg (27-33); Mean Corpuscular Volume 86.7 fl (85-98); Mean Platelet Volume 9.3 fL (7.4-10.4); Monocytes # 0.4 10^3/uL (0.2-0.9); Neutrophils # 4.96 10^3/uL (1.8-7.7); Neutrophils % 61.6 %; Nucleated Red Blood Cells % 0 %; Platelet Count 335 10^3/cmm (157-399); White Blood Count 8.06 10^3/uL (3.29-11.43)
[2024-05-08] MEDS: diphenhydrAMINE 50 mg/mL SDV 1mL IVP (17:53)
[2024-05-08] MEDS: acetaminophen 500 mg Tablet 1000 MG PO (17:53)
[2024-05-08] MEDS: metoclopramide 5 mg/mL SDV 2 mL 10 MG IVP (17:53)
[2024-05-08 18:00] VITALS: BP 117/77; PULSE 110; O2SAT 100
[2024-05-08 18:21] LABS: Alanine Aminotransferase 12 U/L (0-33); Albumin Level 4.3 g/dL (3.5-5.2); Alkaline Phosphatase 51 U/L (35-105); Anion Gap 16.7 (5-19); Aspartate Amino Transferase 15 U/L (0-32); Blood Urea Nitrogen 11 mg/dL (6-20); Calcium 9.5 mg/dL (8.5-10.5); Carbon Dioxide 22 mmol/L (22-29); Chloride 102 mmol/L (98-107); Creatinine Clr Calc Pharmacy 144.4479; Globulin 2.5 g/dL (1.3-4.6); Glomerular Filtration Rate 151.6 mL/min (90-130); Glucose 83 mg/dL (65-115); Osmolality Calculated 283 mOsm/kg (285-295); Potassium 3.7 mmol/L (3.5-5.1); Sodium 137 mmol/L (136-145); Total Bilirubin 0.2 mg/dL (0.15-1.2); Total Protein 6.8 g/dL (6.6-8.7)
[2024-05-08 19:01] VITALS: BP 106/67; PULSE 93; O2SAT 96
== END 2024-05-08 19:02 | disposition home or self-care (01) ==
PROVIDERS: Emergency Provider Physician Assistant
DX: G43.911 Migraine, unspecified, intractable, with status migrainosus (principal); Z3A.11 11 weeks gestation of pregnancy
CPT/HCPCS: 80053; 84702; 85025; 96361; 96374; 96375; 99284; J1200; J2765; J7030

== ENCOUNTER 2025-03-07 18:11 | Emergency (ER) | payer MEDICAID, SELFPAY ==
--- OUTSIDE RECORDS SUMMARY | 2025-03-05 10:30 | XMS_ITS | Encounter Summary ---
Author Organization [facility] Address [address] [place] [address] Care Team Providers Care Prevention Coordinator Name Role Phone Unavailable Primary Care Provider Unavailabl e Reason for Referral * Diagnostic Lab (Routine) - Closed Specialty Diagnoses / Procedures Referred By Rosario wilde Referred To Contact Lab Diagnoses Positive urine test Procedures hCG, quantitative, Rosanna Chavira MD [address] [place] [address] Phone: tel: fax: Referral ID Status Reason Start Date Expiration Date Visits Re quested Visits Authorized [id number] Closed 03/05/2025 1 1 CTOR OF INSTRUCTION Reason for Visit * Diagnostic Lab (Routine) - Closed Specialty Diagnoses / Procedures Referred By Rosario wilde Referred To Contact Lab Diagnoses Positive urine test Procedures hCG, quantitative, Rosanna Chavira MD [address] [place] [address] Phone: tel: fax: Referral ID Status Reason Start Date Expiration Date Visits Re quested Visits Authorized [id number] Closed 03/05/2025 1 1 Encounter Details Date Type Department Care Team (Latest Contact Info) Description 03/05/2025 10:30 AM DIRECTOR OF INSTRUCTION Hospital Encounter [facility] [address] [facility], [place] [address] [place] [phone] Positive urine test Social History Tobacco Use Types Packs/Day Years Used Date Smoking Tobacco: Never Smokeless Tobacco: Never Alcohol Use Standard Drinks/Week Comments Never 0 (1 standard drink = 0.6 oz pur e alcohol) Humiliation, Afraid, Rape, and Kick questionnair e Answer Date Recorded Within the last year, have y ou been afraid of your partner or ex-partner? No 11/25/2024 Within the last year, have y ou been humiliated or emotionally abused in other ways by your partner or ex-partner? No Within the last year, have y ou been kicked, hit, slapped, or otherwise physically hurt by your partner or ex-partner? No 11/25/2024 Within the last year, have y ou been raped or forced to have any kind of sexual activity by your partner or ex-partner? No 11/25/2024 PHQ-2 Answer Date Recorded PHQ-2 Score 0 04/25/2024 Housing Stability Vital Sign Answer Tad e Recorded In the last 12 months, was t here a time when you were not able to pay the mortgage or rent on time? No 11/25/2024 Number of Times Moved in the Last Year Not on fi le 11/25/2024 At any time in the past 12 m [facility], were you homeless or living in a chcf (including now)? No 11/25/2024 Hunger Vital Sign Answer Date Recorded Within the past 12 months, y ou worried that your food would run out before you got the money to buy more. Never true 02/20/20 25 Within the past 12 months, t he food you bought just didn't last and you didn't have money to get more. Never true 02/19/2025 PRAPARE - Transportation Answer Date Re corded In the past 12 months, has l ack of transportation kept you from medical appointments or from getting medications? No 05/2024 In the past 12 months, has l ack of transportation kept you from meetings, work, or from getting things needed for daily living? No 02/19/2025 Housing Stability Vital Sign Answer Tad e Recorded In the last 12 months, was t here a time when you were not able to pay the mortgage or rent on time? No 02/19/2025 Number of Times Moved in the Last Year Not on fi le 02/19/2025 At any time in the past 12 m [facility], were you homeless or living in a chcf (including now)? No 02/19/2025 [facility] Utilities Answer Date Recorded In the past 12 months has th e electric, gas, oil, or water company threatened to shut off services in your home? No 02/19/2025 [place] Depression Scale Answer Date Recorded [place] Depression Scale Total 10 01/09/2025 The thought of harming myself has occurred to me . Never 01/09/2025 Comments No Sex and Gender Information Value Date Recorded Sex Assigned at Not on file Legal Sex Female 9:13 AM CDT Gender Identity Not on file Sexual Orientation Not on file documented as of this encounter Plan of Treatment Upcoming Encounters Date Type Department Care Team (Late st Contact Info) Description 03/25/2025 11:00 AM DIRECTOR OF INSTRUCTION Office Visit [address] [place] [phone] Zayra Caballero, [place] [id number] [place] [id number] 04/08/2025 10:15 AM DIRECTOR OF INSTRUCTION Office Visit [address] [place] [phone] Zayra Caballero, [place] [id number] [place] [id number] 04/23/2025 11:00 AM DIRECTOR OF INSTRUCTION Office Visit [address] [place] [phone] Zayra Caballero, [place] [id number] [place] [id number] 05/22/2025 9:10 AM DIRECTOR OF INSTRUCTION Office Visit [facility] [address] [place] [address] [place] [phone] Rosanna Chavira MD [address] [place] [id number] documented as of this encounter Procedures Procedure Name Priority Date/Time Associated Diagnosis Comments HCG, QUANTITATIVE, Routine 03/05/2025 10:36 AM DIRECTOR OF INSTRUCTION Positive urine test documented in this encounter Results * hCG, quantitative, Once (03/05/2025 10:36 AM DIRECTOR OF INSTRUCTION) B HCG Quant 211.0 m[IU]/mL 03/05/2025 5:57 PM DIRECTOR OF INSTRUCTION [facility] Comment: Normal Ranges: Men and non-, premenopausal females: < 5 mIU/mL Postmenopausal females: <8.3 mIU/mL Approximate Approximate hCG Gestational Age Range (mIU/mL) 0-1 week 0 - 50 1-2 weeks 40 - 300 2-3 weeks 100 - 1,000 3-4 weeks 500 - 6,000 1-2 months 5,000 - 200,000 2-3 months 10,000 - 100,000 2nd trimester 3,000 - 50,000 3rd trimester 1,000 - 50,000 Blood Venous blood / Unknown 03/05/2025 10:36 AM DIRECTOR OF INSTRUCTION 03/05/2025 5:11 PM DIRECTOR OF INSTRUCTION us Rosanna Chavira MD LAB BLOOD ORDERABLES Final Result [facility] [address] [place] [address] documented in this encounter Visit Diagnoses Diagnosis Positive urine test documented in this encounter Additional Health Concerns Assessment Noted Time PHQ-9 Depression Total Score: 0 04/25/19 25 1:21 PM DIRECTOR OF INSTRUCTION A fall risk assessment has been complete d for the patient 01/30/2025 9:39 AM DIRECTOR OF INSTRUCTION documented as of this encounter
--- OUTSIDE RECORDS SUMMARY | 2025-03-05 11:00 | XMS_ITS | Encounter Summary ---
Author Organization [facility] Address [address] [place] [address] Care Team Providers Care Time Study Observer Name Role Phone Unavailable Primary Care Provider Unavailabl e Reason for Visit * Reason Comments Anxiety Encounter Details Date Type Department Care Team (Late st Contact Info) Description 03/05/2025 11:00 AM SMOKE CONTROL SUPERVISOR Office Visit [facility] [place] [facility] [address] [facility] [place] [phone] Zayra Caballero, JEB [address] [place] [address] Illness anxiety disorder (Primary Dx) Social History Tobacco Use Types Packs/Day Years [...] any time in the past 12 m [facility], were you homeless or living in a [place] (including now)? No 11/25/2024 Hunger Vital Sign [...] any time in the past 12 m [facility], were you homeless or living in a [place] (including now)? No 02/19/2025 [facility] Utilities Answer Date Recorded In the past 12 months has th e electric, gas, oil, or water company threatened to shut off services in your home? No 02/19/2025 [place] Depression Scale Answer Date Recorded [place] Depression Scale Total 10 01/09/2025 The thought of harming myself has occurred to me . Never 01/09/2025 Comments No Sex and Gender Information Value Date Recorded Sex Assigned at Not on file Legal Sex Female 9:13 AM CDT Gender Identity Not on file Sexual Orientation Not on file documented as of this encounter Progress Notes * Zayra Caballero, JEB - 03/05/2025 11:00 AM CST PROGRESS NOTE Natan Shell : 2000 Date of Contact: 03/05/2025 10:45 - 11:25 Procedure: [id number] Reason for Contact: Natan Shell is a 24 y.o. female who presents in follow up for Diagnosis Plan 1. Illness anxiety disorder Problems/Intervention/Plan: Illness anxiety disorder Problems/Intervention/Plan: Stressors: relationship stress Symptoms: pt reported recent anxiety, she said overall she is sleeping well. She has felt tired. Status: pt stated that last week she found out somethings with boyfriend and decided that he isn't working on building trust back and was strongly considering moving out. Pt said he has started therapy so is hopeful that will be helpful. Pt said she recent took a test and it was negative but that she took multiple last night that were positive. She took a blood test today and it was positive. Pt said she and boyfriend talked about everything last night. Pt said it is a surprise but isalso happy. Pt said she does have history of two miscarriages in the past. Pt said family and friends do not know at this time but OBGYN is now aware. Pt said she is considering talking to doctor about stopping the Zoloft while as she said she typically feels better when . Pt said she recently got rather anxious thinking she was having a heart attack. She said she was able to stop and think rationally and did not present to the ER and symptoms got better. Intervention: received update. Utilized empathy, support, encouragement, active listening. Provideda therapeutic environment for pt to process thoughts and feelings. Discussed and challenged any irrational thinking and discussed positive coping and positive support. Plan: Look for primary care physician CBT for anxiety Have a space to process stress Development of adaptive coping skills Use of relaxation techniques Follow up with medical provider regarding medication Handout given on .net to look at additional resources Pt to start practicing challenging irrational anxious thoughts to look at what is logical and realistic in relation to health - reminding herself if feeling chest discomfort that she has been to the ER multiple times and had her heart checked with no concerns, that she is 24 with no existing heart condition or any family history of heart condition Provisional 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 Patient was aware of this interviewer. Patient maintained appropriate eye contact. Appearance was well groomed. Patient appeared stated age. Mood appeared mildly anxious. Affect was congruent with mood. Thought content was appropriate. Thought process was logical and coherent. Behavior was appropriate with adequate impulse control. Speech was of normal rate, rhythm, and tone. Attitude toward interviewer was cooperative. Natan Shell was actively engaged in the session. Zayra Caballero PSYD 03/05/2025 History: Medical History: Past Medical History: Diagnosis Date Anxiety Family history of factor V Leiden mutation 12/06/17 patient negative. Miscarriage x2 Ovarian cyst Panic attacks Current Medications: Current Medications[1] Zayra Caballero PSYD 03/05/2025 [1] Current Outpatient Medications: ifykqjp-xjgkurj-yhlu-folic acid ( PLUS) 27 mg iron- 1 mg tablet, Take 1 tablet by mouth in the morning. (Patient not taking: Reported on 01/30/2025), Disp: , Rfl: sertraline (ZOLOFT) 50 mg tablet, Take 1 tablet (50 mg total) by mouth in the morning. (Patient taking differently: Take 25 mg by mouth in the morning.), Disp: 30 tablet, Rfl: 11 E CONTROL SUPERVISOR documented in this encounter Miscellaneous Notes * Assessment & Plan Note - Zayra Caballero PSYD - 03/05/2025 11:27 AM SMOKE CONTROL SUPERVISOR Associated Problem(s): Illness anxiety disorder Problems/Intervention/Plan: Stressors: relationship stress Symptoms: pt reported recent anxiety, she said overall she is sleeping well. She has felt tired. Status: pt stated that last week she found out somethings with boyfriend and decided that he isn't working on building trust back and was strongly considering moving out. Pt said he has started therapy so is hopeful that will be helpful. Pt said she recent took a test and it was negative but that she took multiple last night that were positive. She took a blood test today and it was positive. Pt said she and boyfriend talked about everything last night. Pt said it is a surprise but isalso happy. Pt said she does have history of two miscarriages in the past. Pt said family and friends do not know at this time but OBGYN is now aware. Pt said she is considering talking to doctor about stopping the Zoloft while as she said she typically feels better when . Pt said she recently got rather anxious thinking she was having a heart attack. She said she was able to stop and think rationally and did not present to the ER and symptoms got better. Intervention: received update. Utilized empathy, support, encouragement, active listening. Provideda therapeutic environment for pt to process thoughts and feelings. Discussed and challenged any irrational thinking and discussed positive coping and positive support. Plan: Look for primary care physician CBT for anxiety Have a space to process stress Development of adaptive coping skills Use of relaxation techniques Follow up with medical provider regarding medication Handout given on .net to look at additional resources Pt to start practicing challenging irrational anxious thoughts to look at what is logical and realistic in relation to health - reminding herself if feeling chest discomfort that she has been to the ER multiple times and had her heart checked with no concerns, that she is 24 with no existing heart condition or any family history of heart condition Provisional 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 Patient was aware of this interviewer. Patient maintained appropriate eye contact. Appearance was well groomed. Patient appeared stated age. Mood appeared mildly anxious. Affect was congruent with mood. Thought content was appropriate. Thought process was logical and coherent. Behavior was appropriate with adequate impulse control. Speech was of normal rate, rhythm, and tone. Attitude toward interviewer was cooperative. Natan Shell was actively engaged in the session. Zayra Caballero PSYD 03/05/2025 E CONTROL SUPERVISOR documented in this encounter Plan of Treatment Upcoming Encounters Date Type Department Care Team (Late st Contact Info) Description 03/25/2025 11:00 AM SMOKE CONTROL SUPERVISOR Office Visit [facility] [place] [facility] [address] [facility] [place] [phone] Zayra Caballero PSYD [address] [place] [address] 04/08/2025 10:15 AM SMOKE CONTROL SUPERVISOR Office Visit [facility] [address] [facility] [place] [phone] Zayra Caballero, [place] [address] [place] [address] 04/23/2025 11:00 AM SMOKE CONTROL SUPERVISOR Office Visit [facility] [address] [facility] [place] [address] Zayra Caballero, [place] [address] [place] [address] 05/22/2025 9:10 AM SMOKE CONTROL SUPERVISOR Office Visit [facility] - VIDEOTAPE RECORDING ENGINEER [address] [place] [phone] Rosanna Chavira MD [address] [place] [address] documented as of this encounter Visit Diagnoses Diagnosis Illness anxiety disorder- Primary documented in this encounter Additional Health Concerns Assessment Noted Time PHQ-9 Depression Total Score: 0 04/25/19 25 1:21 PM SMOKE CONTROL SUPERVISOR A fall risk assessment has been complete d for the patient 01/30/2025 9:39 AM SMOKE CONTROL SUPERVISOR documented as of this encounter
--- OUTSIDE RECORDS SUMMARY | 2025-03-07 18:16 | XMS_ITS | Encounter Summary ---
Author Organization [facility] Address [address] [place] [address] Care Team Providers Care House Decorator Name Role Phone Unavailable Primary Care Provider Unavailabl e Encounter Details Date Type Department Care Team (Latest Contact Info) Description 03/05/2025 Travel Social History Tobacco Use Types Packs/Day Years [...] any time in the past 12 m [facility], were you homeless or living in a [facility] (including now)? No 11/25/2024 Hunger Vital Sign [...] any time in the past 12 m [facility], were you homeless or living in a [facility] (including now)? No 02/19/2025 [facility] Utilities Answer Date Recorded In the past 12 months has th e electric, gas, oil, or water company threatened to shut off services in your home? No 02/19/2025 [place] Depression Scale Answer Date Recorded [place] Depression Scale Total 10 01/09/2025 The thought [...] st Contact Info) Description 03/25/2025 11:00 AM CAFE HELPER Office Visit [facility] [address] [place] [phone] Zayra Caballero PSYD [address] [place] [id number] 04/08/2025 10:15 AM CAFE HELPER Office Visit [facility] [address] [place] [phone] Zayra Caballero, [place] [id number] [place] [address] 04/23/2025 11:00 AM CAFE HELPER Office Visit [facility] - [facility] [address] [place] [address] Zayra Caballero, [place] [address] [place] [address] 05/22/2025 9:10 AM CAFE HELPER Office Visit [facility] - BASE DRAW OPERATOR [address] [facility] [phone] Rosanna Chavira MD [address] [place] [address] documented as of this encounter Visit Diagnoses Not on filedocumented in this encounter Additional Health Concerns Assessment Noted Time PHQ-9 Depression Total Score: 0 04/25/19 25 1:21 PM CAFE HELPER A fall risk assessment has been complete d for the patient 01/30/2025 9:39 AM CAFE HELPER documented as of this encounter
--- OUTSIDE RECORDS SUMMARY | 2025-03-07 18:16 | XMS_ITS | Encounter Summary ---
Author Organization [facility] Address [address] [place] [address] Care Team Providers Care Assistant Finance Director Name Role Phone Unavailable Primary Care Provider Unavailabl e Encounter Details Date Type Department Care Team (Late st Contact Info) Description 03/28/2024 Orders Only [facility] [address] [facility] [place] [address] Rosanna Chavira MD [address] [place] [address] Social History Tobacco Use Types Packs/Day Years Used Date Smoking Tobacco: Never Assessed Comments Unknown Sex and Gender Information Value Date Recorded Sex Assigned at Not on file Legal Sex Female 9:13 AM CDT Gender Identity Not on file Sexual Orientation Not on file documented as of this encounter Plan of Treatment Upcoming Encounters Date Type Department Care Team (Late st Contact Info) Description 03/25/2025 11:00 AM WEDDING TRANSPORTATION DRIVER Office Visit [address] [place] [phone] Zayra Caballero, PSYD [facility] [place] [address] 04/08/2025 10:15 AM WEDDING TRANSPORTATION DRIVER Office Visit [address] [place] [phone] Zayra Caballero PSYD [facility] [place] [address] 04/23/2025 11:00 AM WEDDING TRANSPORTATION DRIVER Office Visit [facility] [place] - [facility] [address] [facility] [place] [address] Zayra Caballero, JEB [address] [place] [address] 05/22/2025 9:10 AM WEDDING TRANSPORTATION DRIVER Office Visit [facility] [place] - THEATER MANAGER [address] [place] [address] Rosanna Chavira MD [address] [place] [address] [place] [address] documented as of this encounter Visit Diagnoses Not on filedocumented in this encounter
--- OUTSIDE RECORDS SUMMARY | 2025-03-07 18:16 | XMS_ITS | Encounter Summary ---
Author Organization [facility] Address [address] [place] [address] Care Team Providers Care Hog Feeder Name Role Phone Unavailable Primary Care Provider Unavailabl e Encounter Details Date Type Department Care Team (Late st Contact Info) Description 10/04/2024 Orders Only [facility] - ANIMAL ASSISTED THERAPIST [address] [place] [address] Donita Carey FNP [address] [place] [address] Social History Tobacco Use Types Packs/Day Years Used Date Smoking Tobacco: Never Smokeless Tobacco: Never Alcohol Use Standard Drinks/Week Comments Never 0 (1 standard drink = 0.6 oz pur e alcohol) [facility] Utilities Answer Date Recorded In the past 12 months has e electric, gas, oil, or water company threatened to shut off services in your home? No 10/03/2024 PHQ-2 Answer Date Recorded PHQ-2 Score 0 04/25/2024 Hunger Vital Sign Answer Date Recorded Within the past 12 months, y ou worried that your food would run out before you got the money to buy more. Never true 10/04/19 25 Within the past 12 months, t he food you bought just didn't last and you didn't have money to get more. Never true 10/03/2024 PRAPARE - Transportation Answer Date Re corded In the past 12 months, has l ack of transportation kept you from medical appointments or from getting medications? No 09/17 In the past 12 months, has l ack of transportation kept you from meetings, work, or from getting things needed for daily living? No 10/03/2024 Housing Stability Vital Sign Answer Tad e Recorded In the last 12 months, was t here a time when you were not able to pay the mortgage or rent on time? No 10/03/2024 Number of Times Moved in the Last Year Not on fi le 10/03/2024 At any time in the past 12 m [facility], were you homeless or living in a half-way (including now)? No 10/03/2024 Comments Yes Sex and Gender Information Value Date Recorded Sex Assigned at Not on file Legal Sex Female 9:13 AM CDT Gender Identity Not on file Sexual Orientation Not on file documented as of this encounter Plan of Treatment Upcoming Encounters Date Type Department Care Team (Late st Contact Info) Description 03/25/2025 11:00 AM RISK CONTROL OFFICER Office Visit [address] [place] [phone] Zayra Caballero PSYD [address] [place] [address] [place] [address] 04/08/2025 10:15 AM RISK CONTROL OFFICER Office Visit [address] [place] [phone] Zayra Caballero [address] [place] [address] 04/23/2025 11:00 AM RISK CONTROL OFFICER Office Visit [address] [place] [phone] Zayra Caballero [facility] [place] [address] 05/22/2025 9:10 AM RISK CONTROL OFFICER Office Visit [facility] - ANIMAL ASSISTED THERAPIST [address] [place] [address] [place] [phone] Rosanna Chavira MD [address] [address] documented as of this encounter Visit Diagnoses Not on filedocumented in this encounter Additional Health Concerns Assessment Noted Time PHQ-9 Depression Total Score: 0 04/25/19 25 1:21 PM RISK CONTROL OFFICER A fall risk assessment has been complete d for the patient 10/03/2024 2:09 PM CDT documented as of this encounter
--- OUTSIDE RECORDS SUMMARY | 2025-03-07 18:16 | XMS_ITS | Clinical Summary ---
Author Organization [facility] Address [address] [place] [address] Care Team Providers Care Utilization Coordinator Name Role Phone Unavailable Primary Care Provider Unavailabl e Allergies No known active allergies Medications vitamin-calcium -iron-folic acid ( PLUS) 27 mg iron- 1 mg tablet Take 1 tablet by mouth in the morning. Active sertraline (ZOLOFT) 50 mg tabletIndicatio ns:Anxiety Take 1 tablet (50 mg total) by mouth in the morning. 30 tablet 11 5 01/11/20 26 Active Additional Information Patient taking differently: 25 mgOral Daily, Morning, Reported on 01/30/2025 clindamycin (CLEOCIN HCL) 300 mg capsuleIndicati ons:Endometriti s Take 1 capsule (300 mg total) by mouth in the morning and 1 capsule (300 mg total) at noon and 1 capsule (300 mg total) in the evening. Do all this for 10 days. 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 Pt said she does have history of two miscarriages in the past. Pt said family and friends do not know at this time but KERONVioleta is now aware. Pt said she is [...] update. Utilized empathy, support, encouragement, active listening. Provided a therapeutic environment for pt to process thoughts [...] Anxiety Disorder, care-seeking type Mental Status: Natan Newman Capps was alert and oriented to person, place, [...] in the session. Zayra Caballero PSYD 03/05/2025 Assessment & Plan (02/19/2025 3:[address] BAILIFF OR SHERIFF): Problems/Intervention/Plan: Stressors: issues within her relationship Symptoms: pt reported stress and high anxiety. She said she doesn't think she has felt depressed but has noticed being easy to tears at times. Pt said she tends to feel tense. Status: pt said she has a lot of uncertainties about her relationship as she does not fully trust him right now. Pt wants to work on her relationship and would like for them to do couple's therapy. Pt said she feels that he doesn't take accountability for what he has done and tries to minimize things. She said he also tends to make money a priority. Pt said she has had spurts here and there related to health anxiety. Pt said she recently talked to her brother and mother about what is going on in her relationship for support. Pt said she has been working on when she feels hurt or angry to not say hurtful things in the moment. Pt said she went down to 12.5mg on Zoloft as she felt it was causing her to be overly tired. Intervention: received update. Utilized empathy, support, encouragement, active listening. Provided a therapeutic environment for pt to process thoughts [...] Anxiety Disorder, care-seeking type Mental Status: Natan Newman Sumaya was alert and oriented to person, place, and time. Patient was aware of this interviewer. Patient maintained appropriate eye contact. Appearance was well groomed. Patient appeared stated age. Mood appeared mildly anxious. She was a little tearful at times. Affect was congruent with mood. Thought content was appropriate. Thought process was logical and coherent. Behavior was appropriate with adequate impulse control. Speech was of normal rate, rhythm, and tone. Attitude toward interviewer was cooperative. Natan Shell was actively engaged in the session. Zayra Caballero PSYD 02/19/2025 Assessment & Plan (01/30/2025 1:[address] BAILIFF OR SHERIFF): Problems/Intervention/Plan: Stressors: issues within her relationship Symptoms: stress and anxiety, times of crying self to sleep Status: pt reported that in regard to health anxiety, it can be very bad or like it is gone for a day or so. Pt said she saw OBGYN today for pelvic pain issues and is getting some labs done. She said anxiety about possible cause is not high right now. Pt reported that she is frequently thinking about what her fiance did and it has been stressful for her. Pt explained what happened in detail about not being able to trust him at this time. Pt reported that she did decide to go ahead and try the 25mg Zoloft but did talk with her doctor about possibly not taking any medication. Pt said she is undecided right now but will continue for the time being. Pt reported that baby is doing well. Intervention: received update. Utilized empathy, support, encouragement, active listening. Provided a therapeutic environment for pt to process thoughts and feelings. Discussed and challenged any irrational thinking and discussed positive coping and positive support. Pt said she feels her mother is being more supportive to her fiance than checking in on her and that has also felt upsetting. Plan: Look for primary care physician CBT [...] Anxiety Disorder, care-seeking type Mental Status: Natan Newman Sumaya was alert and oriented to person, place, and time. Patient was aware of this interviewer. Patient maintained appropriate eye contact. Appearance was well groomed. Patient appeared stated age. Mood appeared mildly anxious. She was a little tearful at times. Affect was congruent with mood. Thought content was appropriate. Thought process was logical and coherent. Behavior was appropriate with adequate impulse control. Speech was of normal rate, rhythm, and tone. Attitude toward interviewer was cooperative. Natan Shell was actively engaged in the session. Zayra Caballero PSYD 01/30/2025 state 11/25/2024 Overview (11/25/2024): on 11/25/24. Iron deficiency 10/07/2024 Resolved Problems Problem Noted Date Diagnosed Date Resolved Date Normal labor 11/25/2024 11/25/2024 Overview (11/25/2024): 10/22/24 GBBS negative. SROM. AOL PRN. Planning epidural. macrosomia during preg marii in third trimester 11/25/2024 11/25/2024 Overview (11/25/2024): 3655v (93%; HC = 34.7 cm; AC = 36.72 cm) on 11/07/24. The association between macrosomia and prolonged labor, shoulder dystocia, and section was reviewed. Polyhydramnios, third trimes ter, single gestation 11/25/2024 11/25/2024 Overview (11/25/2024): Mild. RICHARD 21.9, DVP 8.2 cm on 11/19/24. Status / post [facility] referral. GDM excluded. Encounters Date Type Department Care Team Description 03/07/2025 Results Follow-Up [facility] [address] [place] [address] Rosanna Chavira MD hCG, quantitative, 03/07/2025 Travel 03/06/2025 Orders Only [facility] [address] [place] [address] Mariia Bustillos RN Positive urine test 03/06/2025 Results Follow-Up [facility] [address] [place] [address] Rosanna Chavira MD hCG, quantitative, Once 03/05/2025 11:[address] [place]AILIFF [place] SHERIFF Office Visit [facility] [address] [facility] [place] [address] Zayra Caballero PSYD Illness anxiety disorder (Primary Dx) 03/05/2025 10:[address] [place]AILIFF [place] SHER[place] [facility] [place] [phone] Positive urine test 03/05/2025 Travel 03/05/2025 Telephone [facility] [address] [place] [address] Belgica Hickman, RN 03/05/2025 Orders Only [facility] [address] [place] [address] Belgica Hickman RN Positive urine test 02/19/2025 11:[address] [place]IFF [place]ERIFF Office Visit [address] [place] [address] Zayra Caballero PSYD Illness anxiety disorder (Primary Dx); Relationship problem between partners 02/19/2025 Travel 01/31/2025 Results Follow-Up [facility] - [facility]AL[facility] [address] [place] [address] [place] [address] Rosanna Chavira MD CBC with Differential Once 01/30/2025 12:[address] [place]AILIFF [place]ERIFF Office Visit [address] [place] [address] Zayra Caballero PSYD Illness anxiety disorder (Primary Dx); Relationship problem between partners 01/30/2025 9:[address] [place]AILIFF [place] SHERIFF - 01/30/2025 11:[address] [place]IFF [place]ER[place] [facility] [place] [facility] [place] [address] Pelvic pain Discharge Disposition: Home or Self Care 01/30/2025 9:[address] [place]IFF [place]IFF Office Visit [facility] - QUALITY ENGINE[facility] [address] [place] [address] [place] [address] Rosanna Chavira MD Pelvic pain 01/30/2025 Travel 01/21/2025 9:[address] [place]AILIFF [place] SHERIFF Office Visit [address] [place] [address] Zayra Caballero PSYD Illness anxiety disorder (Primary Dx) 01/21/2025 Travel 01/09/2025 2:20 PM CDT Visit [facility] - [facility]ALITY [facility] [address] [facility] [place] [address] Rosanna Chavira MD Anxiety 01/09/2025 Telephone [facility] [address] [place] [address] Rosanna Chavira MD 01/09/2025 Travel 12/17/2024 Refill [facility] [address] [place] [address] Mariia Bustillos RN BV (bacterial vaginosis) 12/17/2024 Results Follow-Up [facility] - QUALITY ENGINE[facility] [place] [phone] Loan Banegas LPN Vaginal Panel by PCR 12/17/2024 Orders Only [facility] [address] [place] [address] Donita Carey FNP BV (bacterial vaginosis) 12/16/2024 4:31 PM CDT - 12/16/2024 11:59 PM CDT [facility], [place] [address] [place] [phone] Vaginal discharge Discharge Disposition: Home or Self Care 12/16/2024 12:00 PM CDT Visit [facility] - QUALITY ENGINEER [facility] [place] [phone] Donita Carey FNP Perineal laceration during delivery, unspecified degree of tear; Vaginal discharge 12/16/2024 Refill [facility] [address] [place] [address] Belgica Hickman RN Perineal laceration during delivery, unspecified degree of tear 12/16/2024 Travel from Last 3 Months Immunizations Immunization Administration Dates Next Due DTaP (INFANRIX) 07/30/2004, 0,1999,08/03 Hep B, unspecified 05/09/2000,1999, Hib (PRP-T) (ACTHIB, HIBERIX) 05/09/2000,,1999 IPV (IPOL) 10/19/2004,07/30/2004 MMR (M-M-R II) 07/30/2004,09/08/2000 Novel [id number] 01/22/2009 Tdap (BOOSTRIX, ADACEL) 10/23/2020,09/12/2012 influenza, injectable, quadr ivalent, preservative free (AFLURIA/FLUARIX/FLULAVAL/FLUZONE) 03/26/2024(Deferred: Other) influenza, injectable, triva lent (AFLURIA/FLUZONE MDV) 01/16/2012,01/11/2011,01/14/2010 meningococcal MCV4O (MENVEO) 06/16/2016 meningococcal MCV4P (MENACTRA) 09/12/2012 pneumococcal conjugate PCV 7 (PREVNAR 7) 1999,1999,1999 polio, unspecified 1999,1999 varicella (VARIVAX) 09/08/2000 Family History Medical History Relation Name Comments No Known Problems Brother 1 Factor V Leiden deficiency Mother Miscarriages / Stillbirths Mother S AB 1 or 2 Miscarriages / Stillbirths Sister 1 S AB x1 No Known Problems Son Relation Name Status Comments Brother 1 Alive Father Alive Mother Alive Sister 1 Alive Son Alive Social History Tobacco Use Types Packs/Day Years Used Date Smoking Tobacco: Never Smokeless Tobacco: Never Tobacco Cessation:Counseling Given: Not Answered Alcohol Use Standard Drinks/Week Comments Never 0 [...] any time in the past 12 m ont, were you homeless or living in a residential (including now)? No 11/25/2024 Hunger Vital Sign [...] any time in the past 12 m ont, were you homeless or living in a residential (including now)? No 02/19/2025 [facility] Utilities Answer Date Recorded In the past 12 months has th e electric, gas, oil, or water company threatened to shut off services in your home? No 02/19/2025 [place] Depression Scale Answer Date Recorded [place] Depression Scale Total 10 01/09/2025 The thought of harming myself has occurred to me . Never 01/09/2025 Comments No Sex and Gender Information Value Date Recorded Sex Assigned at Not on file Legal Sex Female 9:13 AM CDT Gender Identity Not on file Sexual Orientation Not on file Last Filed Vital Signs Vital Sign Reading Time Taken Comments Blood Pressure 112/68 01/30/2025 9:[address] [place]AILIFF [place] SHERIFF Pulse 73 11/27/2024 5:35 AM CDT Temperature 36.7 C (98.1 F) 11/27/2024 5:35 AM CDT Respiratory Rate 18 11/27/2024 5:35 AM CDT Oxygen Saturation 97% 11/27/2024 5:35 AM CDT Inhaled Oxygen Concentration - - Weight 66.2 kg (146 lb) 01/30/2025 9:[address] [place]AILIFF OR SHERIFF Height 157.5 cm (5' 2 ) 01/09/2025 2:17 PM CDT Body Mass Index 26.7 01/09/2025 2:17 PM CDT Plan of Treatment Upcoming Encounters Date Type Department Care Team (Late st Contact Info) Description 03/25/2025 11:[address] [place]AILIFF [place] SHERIFF Office Visit [address] [place] [address] Zayra Caballero PSYD [facility] [place] [address] 04/08/2025 10:[address] [place]AILIFF [place] SHERIFF Office Visit [address] [place] [address] Zayra Caballero PSYD [facility] [place] [address] 04/23/2025 11:[address] [place]AILIFF [place] SHERIFF Office Visit [address] [place] [address] Zayra Caballero PSYD [address] [facility] [place] [address] 05/22/2025 9:[address] [place]IFF [place] SH[place] Office Visit [facility] [place] - QUALITY ENGINEER [address] [facility] [place] [address] Rosanna Chavira MD [address] [place] [address] Health Maintenance Due Date Last Done Comments Varicella Vaccines (2 of 2 - 2-dose childhood series) 02/19/2009 09/08/2000 Annual Wellness 09/12/2013 09/12/2012, 11/24/2009 HPV Vaccines (1 - 3-dose series) 05/31/2014 Influenza Vaccination (#1) 10/18/202401/15, 01/11/2011, 01/14/2010, Additional history exists Pap Smear 04/25/2027 04/25/2024 Td, Tdap Vaccines Adult 10/23/2030 10/23/2020, 09/12 Pneumococcal Vaccine: Pediatrics (0 to 5 Years) and At-Risk Patients (6 to 49 Years) Aged Out 1999, 1999, 1999 No longer eligible based on patient's age to complete this topic HIB Vaccines Aged Out 05/09/2000, 09/18, 1999 No longer eligible based on patient's age to complete this topic Hepatitis B Vaccines Completed 05/09/2000, 1999, 1999 MMR Vaccines Completed 07/30/2004, 09/08/2000 IPV Vaccines Completed 10/19/2004, 07/18, 1999, Additional history exists Meningococcal Vaccines Completed 06/16/2016, 2012 Hepatitis A Vaccines Aged Out No long er eligible based on patient's age to complete this topic RSV Mab Nirsevimab (Beyfortus) <20 months Aged Out No longer eligibl e based on patient's age to complete this topic Rotavirus Vaccines Aged Out No longer eligible based on patient's age to complete this topic Procedures Procedure Name Priority Date/Time Associated Diagnosis Comments HCG, QUANTITATIVE, Routine 03/07/2025 11:[address] BAILIFF OR SHERIFF Positive urine test HCG, QUANTITATIVE, Routine 03/05/2025 10:[address] [place]AILIFF OR SHERIFF Positive urine test NISREEN CBC MANUAL DIFF Routine 01/30/2025 9:[address] BAILIFF OR SHERIFF CBC WITH DIFFERENTIAL Routine 01/30/2025 9:[address] [place]AILIFF OR SHERIFF Pelvic pain VAGINAL PANEL BY PCR Routine 12/16/2024 4:31 PM CDT Vaginal discharge THINPREP PAP SCREEN REFLEX HPV >=21YR Routine 04/25/2024 3:[address] BAILIFF OR SHERIFF screening encounter from Last 3 Months or Most Recently Relevant to Health Maintenance Results * hCG, quantitative, (03/07/2025 11:[address] BAILIFF OR SHERIFF) Only the most recent of2 resultswithin the time period is included. B HCG Quant 336.0 m[IU]/mL 03/07/2025 1:[address] [place]AILIFF OR SHERIFF [facility] [facility] Comment: Normal Ranges: Men and non-, [...] - 50,000 Blood Venous blood / Unknown 03/07/2025 11:[address] [place]AILIFF OR SHERIFF 03/07/2025 12:[address] [place]AILIFF [place] SHERIFF us Rosanna Chavira MD LAB BLOOD ORDERABLES Final Result [facility] [address] [place] [address] * Nisreen CBC manual diff (01/30/2025 9:[address] BAILIFF OR SHERIFF) 01/30/2025 9:[address] [place]AILIFF OR SHERIFF 01/30/2025 3:[address] BAILIFF OR SHERIFF us Rosanna Chavira MD LAB BLOOD ORDERABLES Final Result [facility] [address] [place] [address], [place] * CBC with Differential Once (01/30/2025 9:[address] BAILIFF OR SHERIFF) WBC 5.36 3.30 - 11.70 10*3/uL 01/30/2025 4:[address] [place]AILIFF [place]IFF [facility] RBC 4.60 3.70 - 5.06 10*6/uL 01/30/2025 4:[address] [place] [facility] [facility] Hemoglobin 13.3 11.8 - 15.8 g/dL 01/30/2025 4:[address] [place]AILIFF [place] [facility] [facility] Hematocrit 40.7 36.0 - 52.0 % 01/30/2025 4:[address] [place] [facility] MCV 88.5 83.5 - 100.2 fL 01/30/2025 4:[address] [place]IFF [place] [facility] [facility] MCH 28.9 27.0 - 33.0 pg 01/30/2025 4:[address] [place] [facility] [facility] MCHC 32.7 31.0 - 37.0 g/dL 01/30/2025 4:[address] [place] [facility] Platelet Count 378 135 - 400 10*3/uL 01/30/2025 4:[address] [place] [facility] RDW CV 12.2 10.9 - 14.0 % 01/30/2025 4:[address] [place] [facility] [facility] MPV 10.1 6.7 - 12.0 fL 01/30/2025 4:[address] [place] [facility] Neutrophils 46.00 40.00 - 96.00 % 01/30/2025 4:[address] [place] [place] [facility] [facility] Lymphocytes 46.00 0.00 - 50.00 % 01/30/2025 4:[address] [place] [place] [facility] [facility] Monocytes 6.00 0.00 - 20.00 % 01/30/2025 4:[address] BAILIFF OR SHERIFF [facility] Eosinophils 2.00 0.00 - 15.00 % 01/30/2025 4:[address] BAILIFF OR SHERIFF [facility] Basophils 0.00 0.00 - 3.00 % 01/30/2025 4:[address] [place]AILIFF OR SHERIFF [facility] Absolute Neutrophils 2.47 2.04 - 6.90 10*3/uL 01/30/2025 4:[address] BAILIFF OR SHERIFF [facility] Absolute Lymphocytes 2.47 0.05 - 5.01 10*3/uL 01/30/2025 4:[address] [place]AILIFF OR SHERIFF [facility] Absolute Monocytes 0.32 0.05 - 2.04 10*3/uL 01/30/2025 4:[address] [place]AILIFF OR SHERIFF [facility] Absolute Eosinophils 0.11 0.00 - 0.50 10*3/uL 01/30/2025 4:[address] [place]AILIFF OR SHERIFF [facility] Absolute Basophils 0.00 0.00 - 0.31 10*3/uL 01/30/2025 4:[address] [place]AILIFF OR SHERIFF [facility] Cells Counted 100 NA 01/30/2025 4:[address] [place]AILIFF OR SHERIFF [facility] Platelet Slide Review Normal NA 01/30/2025 4:[address] [place]AILIFF OR SHERIFF [facility] Manual Diff/Review PERFORMED NA 01/30/2025 4:[address] [facility] Nucleated RBC 0.00 0.00 - 0.01 /100{WBCs } 01/30/2025 4:[address] [place]AILIFF OR SHERIFF [facility] Blood Venous blood / Unknown 01/30/2025 9:[address] [place]AILIFF OR SHERIFF 01/30/2025 3:[address] BAILIFF OR SHERIFF us Rosanna Chavira MD LAB BLOOD ORDERABLES Final Result [facility] [address] [place] [address] * (ABNORMAL) Vaginal Panel by PCR (12/16/2024 4:31 PM CDT) Bacterial Vaginosis POSITIVE(A) NEGATIVE NA 12/16/2024 10:31 PM CDT [facility] Caren Group NOT DETECTED NOT DETECTED NA 12/16/2024 10:31 PM CDT [facility] Caren glab-krus NOT DETECTED NOT DETECTED NA 12/16/2024 10:31 PM CDT [facility] Trichomonas Vaginalis NOT DETECTED NOT DETECTED NA 12/16/2024 10:31 PM CDT [facility] Comment: Test method is RT-PCR manufactured by [employer] and performed on the [employer] GeneXpert. This is a qualitative test for the presence of anaerobic bacteria causing bacterial vaginosis, Caren species associated with vulvovaginal candidiasis, and Trichomonas vaginalis, the agent of trichomoniasis. Vaginal Vaginal structure / Unknown 12/16/2024 4:31 PM CDT 12/16/2024 8:10 PM CDT Donita Carey [facility] MICROBIOLOGY - GENERAL OR DERABLES Final Result [facility] [address] [address] * [facility] ThinPrep Screen w/HPV Reflex (04/25/2024 3:[address] BAILIFF OR SHERIFF) ThinPrep Scrn w/HPV Rflx SEE BELOW NA 05/03/2024 8:[address] BAILIFF OR SHERIFF [facility] Comment: ThinPrep Screen HPV Reflex SEE NOTE Test Result Flag Unit RefValue ThinPrep Screen HPV Reflex Interpretation Cervical/Endocervical (ThinPrep): Satisfactory for Evaluation Negative for Intraepithelial Lesion or Malignancy Report electronically signed by HERON Cole(ASCP) I verify that I have examined all relevant slides/materials for the specimen(s) and rendered or confirmed the diagnosis. Gross Description Received specimen in a ThinPrep vial. Pap Test Source Cervical/Endocervical Clinical History none Menstrual Status (LMP, PM, ) 02/21/2024 pt is Hormone Therapy/Contraceptives None/Not known Test Performed by: [facility] - [address] [address] Pricing Director: Manny Mcdonald Ph.D.; CLIA# [id number] Cervix/Vaginal 04/25/2024 3: [address] [place]AILIFF OR SHERIFF 04/25/2024 3:[address] [place]AILIFF OR SHERIFF Narrative [facility] - 05/03/2024 8:[address] BAILIFF OR SHERIFF Pap Smear Source->Cervical/Endocervical Last Menstral Period (LMP) Date->[id number] Hormone Therapy/Contraceptives->None Is Patient:-> Pertinent Clinical History->none Rosanna Chavira MD LAB PATHOLOGY/CYTOLOGY MIKE HAMLIN Final Result [facility] [address] [place] [address] from Last 3 Months or Most Recently Relevant to Health Maintenance Insurance [facility] [employer] Advance Directives * Code Blue and Intubation (Latest Code Status on File) Date Activated Date Inactivated Comments 11/25/2024 11:18 PM 11/27/2024 4:38 PM * Code Blue and Intubation Date Activated Date Inactivated Comments 11/25/2024 3:19 PM 11/25/2024 11:18 PM * Code Blue and Intubation Date Activated Date Inactivated Comments 10/30/2024 2:13 PM 10/30/2024 5:49 PM * Code Blue and Intubation Date Activated Date Inactivated Comments 10/22/2024 12:56 AM 10/22/2024 5:19 AM * Code Blue and Intubation Date Activated Date Inactivated Comments 09/10/2024 2:48 PM 09/10/2024 4:58 PM
--- OUTSIDE RECORDS SUMMARY | 2025-03-07 18:16 | XMS_ITS | Encounter Summary ---
Author Organization [facility] Address [address] [place] [address] Care Team Providers Care Gag Writer Name Role Phone Unavailable Primary Care Provider Unavailabl e Encounter Details Date Type Department Care Team (Late st Contact Info) Description 03/07/2025 Results Follow-Up [facility] [address] [facility] [place], [place] [address] Rosanna Chavira MD [address] [place] [address] hCG, quantitative, Social History Tobacco Use Types Packs/Day Years [...] any time in the past 12 m [facility], were you homeless or living in a detention (including now)? No 11/25/2024 Hunger Vital Sign [...] any time in the past 12 m [facility], were you homeless or living in a detention (including now)? No 02/19/2025 [facility] Utilities Answer Date Recorded In the past 12 months has th e electric, gas, oil, or water company threatened to shut off services in your home? No 02/19/2025 [place] Depression Scale Answer Date Recorded [place] Depression Scale Total 10 01/09/2025 The thought [...] Contact Info) Description 03/25/2025 11:00 AM DIRECTOR CONSUMER Office Visit [facility] [place] [facility] [address] [facility] [place] [address] Zayra Caballero, [address] [place] [address] 04/08/2025 10:15 AM DIRECTOR CONSUMER Office Visit [place] [id number] [facility] [place] [address] Zayra Caballero, [place] [address] [place] [address] 04/23/2025 11:00 AM DIRECTOR CONSUMER Office Visit [address] [place] [address] Zayra Caballero, [address] [place] [address] 05/22/2025 9:10 AM DIRECTOR CONSUMER Office Visit [facility] TR[facility] DR[facility] [place] [phone] Rosanna Chavira MD [address] [place] [address] documented as of this encounter Visit Diagnoses Not on filedocumented in this encounter Additional Health Concerns Assessment Noted Time PHQ-9 Depression Total Score: 0 04/25/19 25 1:21 PM DIRECTOR CONSUMER A fall risk assessment has been complete d for the patient 01/30/2025 9:39 AM DIRECTOR CONSUMER documented as of this encounter
--- OUTSIDE RECORDS SUMMARY | 2025-03-07 18:16 | XMS_ITS | Encounter Summary ---
Author Organization [facility] Address [address] [place] [address] Care Team Providers Care Telephone Services Sales Representative Name Role Phone Unavailable Primary Care Provider Unavailabl e Encounter Details Date Type Department Care Team (Late st Contact Info) Description 03/06/2025 Results Follow-Up [facility] [address] [facility] [place], [place] [address] Rosanna Chavira MD [address] [place] [address] hCG, quantitative, Once Social History Tobacco Use Types Packs/Day Years [...] any time in the past 12 m [facility], were you homeless or living in a senior living (including now)? No 11/25/2024 Hunger Vital Sign [...] any time in the past 12 m [facility], were you homeless or living in a senior living (including now)? No 02/19/2025 [facility] Utilities Answer Date Recorded In the past 12 months has th e electric, gas, oil, or water company threatened to shut off services in your home? No 02/19/2025 [place] Depression Scale Answer Date Recorded [place] Depression Scale Total 10 01/09/2025 The thought of harming myself has occurred to me . Never 01/09/2025 Comments No Sex and Gender Information Value Date Recorded Sex Assigned at Not on file Legal Sex Female 9:13 AM CDT Gender Identity Not on file Sexual Orientation Not on file documented as of this encounter Miscellaneous Notes * Result Encounter Note - Courtney Pardo MA - 03/06/2025 9:19 AM CST Called patient with results. Patient verbalized understanding and is on lab schedule to have redrawn ILE GRINDER documented in this encounter Plan of Treatment Upcoming Encounters Date Type Department Care Team (Late st Contact Info) Description 03/25/2025 11:00 AM PROFILE GRINDER Office Visit [place] [id number] [place] [address] Zayra Caballero, [place] [address] [place] [address] 04/08/2025 10:15 AM PROFILE GRINDER Office Visit [address] [place] [phone] Zayra Caballreo, [place] [address] [place] [address] 04/23/2025 11:00 AM PROFILE GRINDER Office Visit [place] [address] [place] [address] Zayra Caballero, [place] [address] [place] [address] 05/22/2025 9:10 AM PROFILE GRINDER Office Visit [facility] [place] [phone] Rosanna Chavira MD [address] [place] [address] documented as of this encounter Visit Diagnoses Not on filedocumented in this encounter Additional Health Concerns Assessment Noted Time PHQ-9 Depression Total Score: 0 04/25/19 25 1:21 PM PROFILE GRINDER A fall risk assessment has been complete d for the patient 01/30/2025 9:39 AM PROFILE GRINDER documented as of this encounter
--- OUTSIDE RECORDS SUMMARY | 2025-03-07 18:16 | XMS_ITS | Encounter Summary ---
Author Organization [facility] Address [address] [place] [address] Care Team Providers Care Control Board Operator Name Role Phone Unavailable Primary Care Provider Unavailabl e Encounter Details Date Type Department Care Team (Latest Contact Info) Description 03/07/2025 Travel Social History Tobacco Use Types Packs/Day [...] any time in the past 12 m [facility], were you homeless or living in a care home (including now)? No 11/25/2024 Hunger Vital Sign [...] any time in the past 12 m [facility], were you homeless or living in a care home (including now)? No 02/19/2025 [facility] Utilities Answer Date Recorded In the past [...] st Contact Info) Description 03/25/2025 11:00 AM GUEST ADVISOR Office Visit [facility] [address] [place] [phone] Zayra Caballero PSYD [address] [place] [address] 04/08/2025 10:15 AM GUEST ADVISOR Office Visit [facility] [address] [place] [phone] Zayra Caballero, [place] [address] [place] [address] 04/23/2025 11:00 AM GUEST ADVISOR Office Visit [facility] - [facility] [address] [facility] [place] [address] Zayra Caballero, [place] [address] [place] [address] 05/22/2025 9:10 AM GUEST ADVISOR Office Visit [facility] - SPECIAL AGENT [address] [place] [phone] Rosanna Chavira MD [address] [place] [address] documented as of this encounter Visit Diagnoses Not on filedocumented in this encounter Additional Health Concerns Assessment Noted Time PHQ-9 Depression Total Score: 0 04/25/19 25 1:21 PM GUEST ADVISOR A fall risk assessment has been complete d for the patient 01/30/2025 9:39 AM GUEST ADVISOR documented as of this encounter
--- OUTSIDE RECORDS SUMMARY | 2025-03-07 18:16 | XMS_ITS | Clinical Summary ---
Author Organization [facility] Address [address] [place] [address] Care Team Providers Care A R Collections Rep Name Role Phone Unavailable Primary Care Provider Unavailabl e Allergies No known active allergies Medications diphenhydrAMINE (BENADRYL) 25 mg tablet Take 25 mg by mouth every 6 hours as needed for Allergies. Active vits15/iron/fol ic/dss ( VIT 08-LORR-ABDOI-D SS ORAL) Take 1 Tablet by mouth daily. Active lidocaine (LIDODERM) 5 % Adhesive Patch, Medicated Apply 1 Patch to affected area every 24 hours. 30 Patch 09/10/2024 Active escitalopram oxalate (LEXAPRO) 5 mg tablet Take 5 mg by mouth daily. Active Active Problems Problem Noted Date Diagnosed Date Acute cystitis without hematuria 03/26/2024 Less than 8 weeks gestation of 025 Gingivitis 03/26/2024 Missed 04/16/2022 Supervision of other normal , antepartu m 03/28/2022 Anxiety state 12/01/2017 Swelling of body region Estimated Date of Delivery Comme nts Yes 11/27/2024 Resolved Problems Problem Noted Date Diagnosed Date Resolved Date Labor and delivery indicatio n for care or intervention 12/23/2020 02/10/2021 Supervision of normal first , antepartum 06/09/2020 02/10/2021 Moderate dehydration 01/30/2017 018 Tachycardia 01/30/2017 12/01/2017 Infectious gastroenteritis 01/30/2017 0 12/01/2017 Nausea and vomiting in pediatric patient 01/30/2017 12/01/2017 Exercise induced bronchospasm 06/10/2013 12/01/2017 Infectious mononucleosis 04/07/201001/2012 Sore throat 05/15/2008 05/05/2009 Hypotension 12/01/2017 Encounters Date Type Department Care Team Description 02/18/2025 External Device Data STL ABSTRACTION Provider, Abstract 02/11/2025 External Device Data STL ABSTRACTION Provider, Abstract 02/11/2025 External Device Data STL ABSTRACTION Provider, Abstract 02/11/2025 External Device Data STL ABSTRACTION Provider, Abstract 01/21/2025 External Device Data STL ABSTRACTION Provider, Abstract 01/21/2025 External Device Data STL ABSTRACTION Provider, Abstract 01/21/2025 External Device Data STL ABSTRACTION Provider, Abstract 01/15/2025 External Device Data STL ABSTRACTION Provider, Abstract 01/15/2025 External Device Data STL ABSTRACTION Provider, Abstract 01/14/2025 12:50 AM CDT - 01/14/2025 2:24 AM CDT Emergency [facility] Emergency [facility] [address] [place] [address] Claude Belcher DO Right-sided headache (Primary Dx) Discharge Disposition: Home or Self Care 01/14/2025 External Device Data STL ABSTRACTION Provider, Abstract 01/14/2025 Travel 12/10/2024 External Device Data STL ABSTRACTION Provider, Abstract 12/10/2024 External Device Data STL ABSTRACTION Provider, Abstract from Last 3 Months Immunizations Immunization Administration Dates Next Due (ADACEL/BOOSTRIX)(10 YR UP) TDAP VACCINE, 0.5ML, IM 10/23/2020,09/12/2012 (M-M-R II/PRIORIX)(12 MO UP) MEASLES, MUMPS AND RUBELLA VIRUS VACCINE, 0.5 ML IM/SUBCUT 07/30/2004,09/08/2000 (VARIVAX)(12 MOS UP)VARICELL A VIRUS VACCINE (PF) 0.5 ML, SUB CUT 09/08/2000 Dt Dtp Dtap Vaccine 07/30/2004, 0,1999,08/03 HIB, Unspecified Formulation 05/09/2000,10/08/19 00,1999 Hepatitis B Vaccine 05/09/2000,1999,1999 IPV/OPV 07/30/2004,1999,1999 Influenza A (H1N1) Vaccine IM 01/22/2009 Influenza Vaccine Split 3+ Yrs IM 01/16/2012,,01/14/2010 Meningococcal A Conjugate Vaccine IM 06/16/2016, 09/12/2012 Pneumococcal 7-valent conjug ate vaccine IM 1999,1999,1999 Family History Medical History Relation Name Comments Healthy Brother Healthy Father Healthy Mother Healthy Sister Relation Name Status Comments Brother Father Mother Sister Social History Tobacco Use Types Packs/Day Years Used Date Smoking Tobacco: Never Smokeless Tobacco: Never Tobacco Cessation:Counseling Given: Not Answered Alcohol Use Standard Drinks/Week Comments Not Currently 0 (1 standard drink = 0.6 oz pur e alcohol) Food Insecurity Answer Date Recorded Do you find you are eating l ess than you should because you can t pay for food? No 01/14/2025 Transportation Needs Answer Date Record ed Have you gone without health care because you didn t have a way to get there? 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 No 2024 Housing Stability Answer Date Recorded Do you worry you won t have a steady place to sleep or struggle to pay rent or mortgage? No 01/14/2025 Utility Needs Answer Date Recorded Do you have difficulty payin g for utility costs (electric, water or gas bills)? No 01/14/2025 Medication Needs Answer Date Recorded Have you skipped taking medi cation due to cost or worry you can t afford new medications? No 01/14/2025 Feeling Safe Answer Date Recorded Are you in a relationship wi th someone who hurts you emotionally and/or physically? No 01/14/2025 Estimated Date of Delivery Comme nts Yes 11/27/2024 Sex and Gender Information Value Date Recorded Sex Assigned at Not on file Legal Sex Female 2:01 AM INSURANCE INVESTIGATOR Gender Identity Not on file Sexual Orientation Not on file Last Filed Vital Signs Vital Sign Reading Time Taken Comments Blood Pressure 115/72 01/14/2025 2:20 AM CDT Pulse 89 01/14/2025 2:20 AM CDT Temperature 36.6 C (97.9 F) 01/14/2025 12:48 AM CDT Respiratory Rate 17 01/14/2025 12:4 8 AM CDT Oxygen Saturation 97% 01/14/2025 2:20 AM CDT Inhaled Oxygen Concentration - - Weight 67.5 kg (148 lb 12.8 oz) 025 12:48 AM CDT Height 160 cm (5' 3 ) 01/14/2025 12:48 AM CDT Body Mass Index 26.36 01/14/2025 12:48 AM CDT Plan of Treatment Health Maintenance Due Date Last Done Comments HPV VACCINES (1 - 3-dose series) 05/31/2014 HPV/Cotest (21-29) 05/31/2020 INFLUENZA VACCINE (#1) 2024 2, 01/11/2011, 01/14/2010 CERVICAL CANCER SCREENING 04/25/2027 PAP SMEAR 04/25/2027 04/25/2024, 02/15/2021 DTAP/TDAP/TD VACCINES (7 - T d or Tdap) 10/23/2030 10/23/2020, 09/12/2012, 07/30/2004, Additional history exists RSV VACCINE (60+ or ) (1 - 1-dose 75+ series) 05/31/2074 HEPATITIS B VACCINES Completed 05/09/2000, 05/09/2000, 1999, Additional history exists CHLAMYDIA SCREENING (ANNUAL) 11-24 YEARS Discontinued 03/26/2024, 06/29/2021, 03/04/2018 Procedures Procedure Name Priority Date/Time Associated Diagnosis Comments GC/CHLAMYDIA, UROGENITAL Stat 03/26/2024 3:27 PM INSURANCE INVESTIGATOR CERV/VAG CYTO AGE BASED SCREEN PAP W CT/NG, TRICH Routine 02/15/2021 12:02 PM INSURANCE INVESTIGATOR Screening for endocrine, nutritional, metabolic and immunity disorder from Last 3 Months or Most Recently Relevant to Health Maintenance Results * GC/CHLAMYDIA, UROGENITAL (03/26/2024 3:27 PM INSURANCE INVESTIGATOR) CHLAMYDIA DNA AMPLIFICATION NOT DETECTED Not Detected 03/27/2024 6:32 PM INSURANCE INVESTIGATOR [facility] GC DNA AMPLIFICATION NOT DETECTED Not Detected 03/27/2024 6:32 PM INSURANCE INVESTIGATOR [facility] Urine (Urine, 1st catch) Collection / Unknown 03/26/2024 3:27 PM INSURANCE INVESTIGATOR 03/26/2024 4:47 PM INSURANCE INVESTIGATOR Narrative [facility] - 03/27/2024 6:32 PM INSURANCE INVESTIGATOR Results should not be used for the evaluation of suspected sexual abuse or for other medico-legal indications. The only legally accepted results are from culture. Results cannot be used to assess therapeutic success or failure since nucleic acids may persist following antimicrobial therapy. us Gay Irving MD MICROBIOLOGY - GENERAL ORDERABL ES Final Result [facility] CLIA # [id number] Count includes the [facility] [address] * CERV/VAG CYTO AGE BASED SCREEN PAP W CT/NG, TRICH (02/15/2021 12:02 PM INSURANCE INVESTIGATOR) SEE NOTE [facility] Comment: This order for age-based cervical cancer and STI screening follows ACOG guidelines(PB 168, 140, DJQ624). See individual assays for performing site location. CLINICAL INFORMATION [facility] Comment:Information not prov ided LAST MENSTRUAL PERIOD [facility] Comment:INFORMATION NOT PROV IDED PREV PAP: [facility] Comment:INFORMATION NOT PROV IDED PREV BX: [facility] Comment:INFORMATION NOT PROV IDED SOURCE [facility] Comment:Endocervix ADEQUACY: [facility] Comment: Satisfactory for evaluation. Endocervical/transformation zone component present. Age and/or menstrual status not provided PAP INTERP [facility] Comment:Negative for intraep ithelial lesion or malignancy. COMMENT (PAP TEST) [facility] Comment: This Pap test has been evaluated with computer assisted technology. [place]: [facility] Comment: DDS CT(ASCP) CT screening location: [place] [address] [place] [address] SEE NOTE [facility] Comment: EXPLANATORY NOTE: The Pap is a screening test for cervical cancer. It is not a diagnostic test and is subject to false negative and false positive results. It is most reliable when a satisfactory sample, regularly obtained, is submitted with relevant clinical findings and history, and when the Pap result is evaluated along with historic and current clinical information. C TRAC RNA NOT DETECTED NOT DETECTED [facility] N.GONORRHOEAE RNA, TMA NOT DETECTED NOT DETECTED [facility] SEE NOTE [facility] Comment: The analytical performance characteristics of this assay, when used to test SurePath(TM) specimens have been determined by [facility]. The modifications have not been cleared or approved by the FDA. This assay has been validated pursuant to the CLIA regulations and is used for clinical purposes. For additional information, please refer to https://Wistia.Sientra/faq/YRI168 (This link is being provided for information/ educational purposes only.) TRICHOMONAS VAGINALIS,QUALITAT JOSH,PAP VIAL NOT DETECTED NOT DETECTED [facility] Comment: The analytical performance characteristics of this assay have been determined by [facility]. The modifications have not been cleared or approved by the FDA. This assay has been validated pursuant to the CLIA regulations and is used for clinical purposes. For additional information, please refer to http://Wistia.Sientra/ faq/Trichomonastma (This link is being provided for information/ educational purposes only.) Test Performed at: [facility] [address] [place] [address] Dru Browne D.O., MPH Genital SWAB OF ENDOCERVIX / Unknown 02/15/2021 12:02 PM INSURANCE INVESTIGATOR 02/16/2021 8:29 AM INSURANCE INVESTIGATOR Nhung Morel COMPUTER APPLICATIONS DEVELOPER- PATHOLOGY/CYTOLOGY ORD ERABLES Final Result [facility] [address] [place] [address] from Last 3 Months or Most Recently Relevant to Health Maintenance Insurance RX INFOCROSSING Medicaid [facility] [address] Advance Directives For more information, please contact: [phone] * Full Code (Latest Code Status on File) Date Activated Date Inactivated Comments 04/16/2022 9:55 PM 04/17/2022 2:13 AM * Full Code Date Activated Date Inactivated Comments 04/16/2022 9:28 PM 04/16/2022 9:54 PM * Full Code Date Activated Date Inactivated Comments 12/27/2020 9:50 AM 12/28/2020 7:57 PM * Full Code Date Activated Date Inactivated Comments 12/26/2020 11:38 PM 12/27/2020 8:13 AM * Full Code Date Activated Date Inactivated Comments 12/26/2020 11:17 PM 12/26/2020 11:38 PM
--- OUTSIDE RECORDS SUMMARY | 2025-03-07 18:16 | XMS_ITS | Encounter Summary ---
Author Organization [facility] Address [address] [place] [address] Care Team Providers Care Radiator Specialist Name Role Phone Unavailable Primary Care Provider Unavailabl e Encounter Details Date Type Department Care Team (Late st Contact Info) Description 03/05/2025 Telephone [facility] [address] [place] [id number] Belgica Hickman RN Social History Tobacco Use Types Packs/Day Years [...] any time in the past 12 m [facility], were you homeless or living in a long-term (including now)? No 11/25/2024 Hunger Vital Sign [...] any time in the past 12 m [facility], were you homeless or living in a long-term (including now)? No 02/19/2025 [facility] Utilities Answer Date Recorded In the past 12 months has th e electric, gas, oil, or water company threatened to shut off services in your home? No 02/19/2025 [place] Depression Scale Answer Date Recorded [place] Depression Scale Total 10 01/09/2025 The thought of harming myself has occurred to me . Never 01/09/2025 Comments No Sex and Gender Information Value Date Recorded Sex Assigned at Not on file Legal Sex Female 9:13 AM CDT Gender Identity Not on file Sexual Orientation Not on file documented as of this encounter Miscellaneous Notes * Telephone Encounter - Albert Norwood RN - 03/05/2025 9:36 AM CST FYI CH LANGUAGE PATHOLOGIST * Telephone Encounter - Belgica Hickman RN - 03/05/2025 9:14 AM CST Pt messaged that she had positive HPT. Lab order placed and pt will go to [place] to have drawn. CH LANGUAGE PATHOLOGIST documented in this encounter Plan of Treatment Upcoming Encounters Date Type Department Care Team (Late st Contact Info) Description 03/25/2025 11:00 AM SPEECH LANGUAGE PATHOLOGIST Office Visit [address] [place] [phone] Zayra Caballero, [address] [place] [address] 04/08/2025 10:15 AM SPEECH LANGUAGE PATHOLOGIST Office Visit [address] [place] [phone] Zayra Caballero [address] [place] [address] 04/23/2025 11:00 AM SPEECH LANGUAGE PATHOLOGIST Office Visit [address] [place] [phone] Zayra Caballero, [address] [place] [address] 05/22/2025 9:10 AM SPEECH LANGUAGE PATHOLOGIST Office Visit [facility] - MIXING TANK OPERATOR [facility] [phone] Rosanna Chavira MD [address] [place] [place] [address] documented as of this encounter Visit Diagnoses Not on filedocumented in this encounter Additional Health Concerns Assessment Noted Time PHQ-9 Depression Total Score: 0 04/25/19 25 1:21 PM SPEECH LANGUAGE PATHOLOGIST A fall risk assessment has been complete d for the patient 01/30/2025 9:39 AM SPEECH LANGUAGE PATHOLOGIST documented as of this encounter
--- OUTSIDE RECORDS SUMMARY | 2025-03-07 18:16 | XMS_ITS | Encounter Summary ---
Author Organization [facility] Address [address] [place] [address] Care Team Providers Care Research Assoc Name Role Phone Unavailable Primary Care Provider Unavailabl e Encounter Details Date Type Department Care Team (Latest Contact Info) Description 01/31/2025 Results Follow-Up [facility] - [facility] [address] [place] [address] Rosanna Chavira MD [address] [place], [place] [address] CBC with Differential Once Social History Tobacco Use Types Packs/Day Years Used Date Smoking Tobacco: Never Smokeless Tobacco: Never Alcohol Use Standard Drinks/Week Comments Never 0 (1 standard drink = 0.6 oz pur e alcohol) [facility] Utilities Answer Date Recorded In the past 12 months has e [employer], gas, oil, or water [employer] threatened to shut off services in your home? No 11/25/2024 Humiliation, Afraid, Rape, and Kick questionnair e [...] the money to buy more. Never true 11/26/19 25 Within the past 12 months, t he food you bought just didn't last and you didn't have money to get more. Never true 11/25/2024 PRAPARE - Transportation Answer Date Re corded In the past 12 months, has l ack of transportation kept you from medical appointments or from getting medications? No 10/2024 In the past 12 months, has l ack of transportation kept you from meetings, work, or from getting things needed for daily living? No 11/25/2024 Housing Stability Vital Sign Answer Tad e Recorded In the last 12 months, was t here a time when you were not able to pay the mortgage or rent on time? No 11/25/2024 Number of Times Moved in the Last Year Not on fi le 11/25/2024 At any time in the past 12 m [facility], were you homeless or living in a prison (including now)? No 11/25/2024 [place] Depression Scale Answer Date Recorded [place] Depression Scale Total 10 01/09/2025 The thought [...] st Contact Info) Description 03/25/2025 11:00 AM EXECUTIVE VICE PRESIDENT Office Visit [facility] Behavioral Health [address] [place] [phone] Zayra Caballero PSYD [address] [place] [address] 04/08/2025 10:15 AM EXECUTIVE VICE PRESIDENT Office Visit [facility] Hospital Health [address] [place] [phone] Zayra Caballero, [place] [phone] [place] [address] 04/23/2025 11:00 AM EXECUTIVE VICE PRESIDENT Office Visit [facility] - Behavioral Health [address] [place] [address] Zayra Caballero, [place] [address] [place], [place] [address] 05/22/2025 9:10 AM EXECUTIVE VICE PRESIDENT Office Visit [facility] - [facility] [address] [place] [address] Rosanna Chavira MD [address] [place] [address] documented as of this encounter Visit Diagnoses Diagnosis Endometritis Unspecified inflammatory disease of uterus documented in this encounter Additional Health Concerns Assessment Noted Time PHQ-9 Depression Total Score: 0 04/25/19 25 1:21 PM EXECUTIVE VICE PRESIDENT A fall risk assessment has been complete d for the patient 01/30/2025 9:39 AM EXECUTIVE VICE PRESIDENT documented as of this encounter
--- OUTSIDE RECORDS SUMMARY | 2025-03-07 18:16 | XMS_ITS | Encounter Summary ---
Author Organization [facility] Address [address] [address] Care Team Providers Care Manufacturing Production Manager Name Role Phone Unavailable Primary Care Provider Unavailabl e Reason for Referral * Diagnostic Lab (Routine) - Closed Specialty Diagnoses / Procedures Referred By Rosario wilde Referred To Contact Lab Diagnoses Positive urine test Procedures hCG, quantitative, Rosanna Chavira MD [address] [place] [place] [address] Phone: tel: fax: Referral ID Status Reason Start Date Expiration Date Visits Re quested Visits Authorized [id number] Closed 03/05/2025 1 1 OPERATOR Encounter Details Date Type Department Care Team (Late st Contact Info) Description 03/05/2025 Orders Only [facility] [address] [facility] [place], [place] [phone] Belgica Hickman RN Positive urine test Social History Tobacco Use [...] any time in the past 12 m [facility], were you homeless or living [...] any time in the past 12 m [facility], were you homeless or living in a senior living (including now)? No 02/19/2025 [facility] Utilities Answer Date Recorded In the past 12 months has th e electric, gas, oil, or water company threatened to shut off services in your home? No 02/19/2025 [place] Depression Scale Answer Date Recorded [place] Depression Scale Total 10 01/09/2025 The thought [...] st Contact Info) Description 03/25/2025 11:00 AM BECK OPERATOR Office Visit [address] [place] [address] Zayra Caballero, [place] [phone] [place] [place] [address] 04/08/2025 10:15 AM BECK OPERATOR Office Visit [address] [place] [phone] Zayra Caballero, [address] [place] [address] 04/23/2025 11:00 AM BECK OPERATOR Office Visit [address] [place] [address] Zayra Caballero, [address] [place] [address] 05/22/2025 9:10 AM BECK OPERATOR Office Visit [facility] - [employer] REFINISHER [address] [place] [address] [place] [phone] Rosanna Chavira MD [address] [place] [address] [place] [address] documented as of this encounter Results * hCG, quantitative, Once (03/05/2025 10:36 AM BECK OPERATOR) B HCG Quant 211.0 m[IU]/mL 03/05/2025 5:57 PM [facility] Comment: Normal Ranges: Men and non-, [...] Venous blood / Unknown 03/05/2025 10:36 AM BECK OPERATOR 03/05/2025 5:11 PM BECK OPERATOR us Rosanna Chavira MD LAB BLOOD ORDERABLES Final Result [facility]NOTE 3[facility] LAB [address] [address] documented in this encounter Visit Diagnoses Diagnosis Positive urine test documented in this encounter Additional Health Concerns Assessment Noted Time PHQ-9 Depression Total Score: 0 04/25/19 25 1:21 PM BECK OPERATOR A fall risk assessment has been complete d for the patient 01/30/2025 9:39 AM BECK OPERATOR documented as of this encounter
--- OUTSIDE RECORDS SUMMARY | 2025-03-07 18:16 | XMS_ITS | Encounter Summary ---
Author Organization [facility] Address [address] [place] [address] Care Team Providers Care Chief Strategy Officer Name Role Phone Unavailable Primary Care Provider Unavailabl e Reason for Referral * Diagnostic Lab (Routine) - Closed Specialty Diagnoses / Procedures Referred By Rosario wilde Referred To Contact Lab Diagnoses Positive urine test Procedures hCG, quantitative, Rosanna Chavira MD [address] [place] [address] Phone: tel: fax: Referral ID Status Reason Start Date Expiration Date Visits Re quested Visits Authorized [id number] Closed 03/06/2025 1 1 ECT GEOLOGIST Encounter Details Date Type Department Care Team (Late st Contact Info) Description 03/06/2025 Orders Only [facility] [address] [facility] [place], [place] [address] Mariia Bustillos RN Positive urine test Social History Tobacco [...] in a prison (including now)? No 11/25/2024 Hunger Vital Sign [...] living in a prison (including now)? No 02/19/2025 [facility] Utilities Answer Date Recorded In the past 12 months has th e electric, gas, oil, or water company threatened to shut off services in your home? No 02/19/2025 [place] Depression Scale Answer Date Recorded [place] Depression Scale Total 10 01/09/2025 The thought [...] st Contact Info) Description 03/25/2025 11:00 AM PROJECT GEOLOGIST Office Visit [address] [place] [address] Zayra Caballero, [place] [address] [place] [address] 04/08/2025 10:15 AM PROJECT GEOLOGIST Office Visit [address] [place] [phone] Zayra Caballero, [address] [place] [address] 04/23/2025 11:00 AM PROJECT GEOLOGIST Office Visit [address] [place] [phone] Zayra Caballero, [place] [address] [place] [address] 05/22/2025 9:10 AM PROJECT GEOLOGIST Office Visit [facility] - [facility] TUBE BENDER [address] [place] [address] [place] [phone] Rosanna Chavira MD [address] [place] [address] documented as of this encounter Results * hCG, quantitative, (03/07/2025 11:23 AM PROJECT GEOLOGIST) B HCG Quant 336.0 m[IU]/mL 03/07/2025 1:16 PM [facility] Comment: Normal Ranges: Men [...] Venous blood / Unknown 03/07/2025 11:23 AM PROJECT GEOLOGIST 03/07/2025 12:36 PM PROJECT GEOLOGIST us Rosanna Chavira MD LAB BLOOD ORDERABLES Final Result [facility] [address] [address] documented in this encounter Visit Diagnoses Diagnosis Positive urine test documented in this encounter Additional Health Concerns Assessment Noted Time PHQ-9 Depression Total Score: 0 04/25/19 25 1:21 PM PROJECT GEOLOGIST A fall risk assessment has been complete d for the patient 01/30/2025 9:39 AM PROJECT GEOLOGIST documented as of this encounter
[2025-03-07 18:20] VITALS: BP 144/91; PULSE 85; RESP 16; TEMP 36.7; O2SAT 99; BMI 26.2
--- NOTE | 2025-03-07 18:49 | USR_ITS ---
PROCEDURE INFORMATION: Exam: US , Transvaginal Exam date and time: 03/07/2025 7:02 PM Age: 24 years old Clinical indication: complicated by abdominal or pelvic pain; Lower; First trimester (<14 weeks 0 days); Gestational age or lmp: 01/23/2025; ; Additional info: Lower abd cramping, 4w preg->ro ectopic LABS AND CLINICAL REPORTS: Last menstrual period start date: 01/23/2025 Estimated due date (Established): 10/30/2025 TECHNIQUE: Imaging protocol: Real-time transvaginal obstetrical ultrasound of the maternal pelvis with image documentation. Transvaginal imaging was used for better evaluation of the fetus, adnexa, and/or cervix. COMPARISON: US OB <= 14 weeks fetus [id number] 04/18/2024 9:09 PM FINDINGS: Gestation: See Intraperitoneal space finding. MATERNAL: Right ovary/adnexa: The right ovary measures 3.3 x 2.5 x 2.3 cm with vascular flow. Left ovary/adnexa: The left ovary measures 3.2 x 2.0 x 1.4 cm with vascular flow. Intraperitoneal space: Small amount of free fluid in the posterior cul-de-sac. No intrauterine identified. US/US OB transvaginal [id number] IMPRESSION: No intrauterine . While no ectopic is visualized, this can not be excluded with pelvic ultrasound. Consider serial beta HCG level testing and if clinically indicated repeat pelvic ultrasound.
--- NOTE | 2025-03-07 19:13 | W.ED.ABDPA2 ---
HPI - Abdominal Pain General: Chief Complaint: Abdominal Pain Stated Complaint: Lt side abd pain around to the back,cramps Time Seen by Provider: 03/07/25 18:31 History of Present Illness: Patient is a 24-year-old female who presents to the ED with left lower back pain. Originally had a first test earlier last week, has had 2 hCG draws, 1 a few days ago was 300 and then earlier today was 200 and was sent here for an ultrasound to evaluate for ectopic. She states that pain has become gradually more diffuse to her lower back, no trauma, no fevers, no dysuria, hematuria. She has had no vaginal bleeding or sustained lower abdominal cramping. Last period was in early January. Her 2 previous miscarriages were spontaneous, one required a D&C at 9 weeks. Her other 2 pregnancies resulted in normal vaginal deliveries at full-term with no apparent complications. She has had no nausea or vomiting, diarrhea. Associated Symptoms: Denies chills, diarrhea and fever(s) Related Data Date of Last Menstrual Period: 01/23/25 Previous Rx's ?Medication ?Instructions ?Recorded ondansetron 4 mg disintegrating 4 mg PO TID PRN nausea and 03/07/25 tablet vomiting 5 days #14 tabs Allergies Allergy/AdvReac Type Severity Reaction Status Date / Time No Known Allergies Allergy Verified 03/07/25 18:23 Review of Systems General: Reports: 10 or more systems reviewed and unremarkable except in HPI and below Const: Denies: fever(s) or chills Eyes: Denies: change in vision or eye discharge Card: Denies: chest pain, palpitations or swelling of feet/ankles Resp: Denies: dyspnea or productive cough GI: Denies: abdominal pain or diarrhea Musc: Reports: back pain; Denies: neck pain Skin/Breast: Denies: rash or jaundice Neuro: Denies: headache(s), numbness in extremities or weakness in extremities Abel[place]/Lymph: Denies: easy bruising or easy bleeding [facility] ED Female Reproductive History: Date of last menstrual period: 01/23/25 Physical Exam Narrative: EXAM NARRATIVE: Patient overall well-appearing, afebrile and vital signs stable on arrival, no acute distress. head normocephalic, PERRL, moist mucous membranes, no cervical LAD. breathing comfortably on RA, saturating well, clear BL and no adventitious breath sounds, able to speak in full sentences without getting SOB, no signs of respiratory distress. NSR with no murmurs, no leg swelling, 2+ pulses throughout, good cap refill. Abdomen soft, nontender, nondistended, no localizing or peritonitic signs, no overlying skin changes, no CVA ttp. 4 extremities without apparent deformity or injury. GCS 15, AAOx4, able to answer questions and follow commands appropriately, moving all 4 extremities symmetrically and spontaneoulsy. Normal mood and affect. Course Vital Signs: Vital signs: Vital Signs Temperature 98.0 F 03/07/25 18:20 Pulse Rate 76 03/07/25 21:05 Respiratory Rate 16 03/07/25 21:05 Blood Pressure 107/70 03/07/25 21:05 Pulse Oximetry 97 03/07/25 21:05 Oxygen Delivery Me thod Room Air 03/07/25 21:04 MDM - Abdominal Pain Medical Decision Making -ddx: Spontaneous miscarriage, ectopic, early viable , subchorionic hematoma - Patient overall well-appearing, reassuring abdominal exam, seemingly steadily decreasing hCG on 2 rechecks this week, we will get basic labs, beta quant to trend, transvaginal ultrasound to rule out ectopic and reassess, denying needing any pain or nausea medication at this time. - Beta-hCG at 329, was 300 today, 202 days ago and so probably too early to tell but most likely a spontaneous miscarriage, ultrasound today saw no evidence of ectopic but no viable intrauterine either but not at 1500 so would not expect this. Her labs were otherwise reassuring, she was Rh+ so no RhoGAM needed. With symptoms completely under control at this time, deemed she was stable for discharge, stated that over the next few days she might have symptoms consistent with a heavy period and if she does not in a week's time, either way really to check her hCG at that time and it will be more clear whether it is doubling appropriately first not more consistent with a failed , given very strict return precautions on worsening signs for an ectopic and when to return, patient and at bedside agreeable with plan of care and discharged in stable condition. Lab Data 03/07/25 19:27 03/07/25 19:27 Labs/Radiology: Radiology Impressions Transvaginal US 03/07/25 18:49 IMPRESSION: No intrauterine . While no ectopic is visualized, this can not be excluded with pelvic ultrasound. Consider serial beta HCG level testing and if clinically indicated repeat pelvic ultrasound. Laboratory Results WBC 8.10 10^3/uL (3.29-11.43) 03/07/25 19: RBC 4.34 10^6/uL (3.85-5.65) 03/07/25: Hgb 12.50 g/dL (11.27-16.99) 03/07/25: Hct 37.8 % (36-47) 03/07/25: MCV 87.1 fl (85-98) 03/07/25: MCH 28.8 pg (27-33) 03/07/25 MCHC 33.1 g/dL (30-55) 03/07/25: RDW 12.5 % (12.1-15.1) 03/07/25 Plt Count 360 10^3/cmm (157-399) 03/07/25 MPV 9.4 fL (7.4-10.4) 03/07/25: Neut % (Auto) 50.9 % 03/07/25: Lymph % (Auto) 41.4 % 03/07/25: [place] % (Auto) 4.9 % 03/07/25: Eos % (Auto) 2.3 % 03/07/25 Baso % (Auto) 0.4 % 03/07/25 Neut # (Auto) 4.12 10^3/uL (1.8-7.7) 03/07/25: Lymph # (Auto) 3.4 10^3/uL (0.8-4.8) 03/07/25: [place] # (Auto) 0.4 10^3/uL (0.2-0.9) 03/07/25 Eos # (Auto) 0.2 10^3/uL (0.0-0.8) 03/07/25: Baso # (Auto) 0.0 10^3/uL (0.0-0.1) 03/07/25 Nucleated RBC % (auto) 0 % 03/07/25: Nucleated RBCs # 0.0 /100WBC 03/07/25 19: Sodium 137 mmol/L (136-145) 03/07/25 19: Potassium 3.7 mmol/L (3.5-5.1) 03/07/25 19: Chloride 101 mmol/L (98-107) 03/07/25 19: Carbon Dioxide 23 mmol/L (22-29) 03/07/25: Anion Gap 16.7 (5-19) 03/07/25 19: BUN 12 mg/dL (6-20) 03/07/25 19: Creatinine 0.7 mg/dL (0.5-0.9) 03/07/25: GFR Calculation 102.0 mL/min (90-130) 03/07/25: Glucose 86 mg/dL (65-115) 03/07/25: Calculated Osmolality 283 mOsm/kg (285-295) L 03/07/25: Calcium 9.5 mg/dL (8.5-10.5) 03/07/25: Total Bilirubin 0.2 mg/dL (0.15-1.2) 03/07/25: AST 28 U/L (0-32) 03/07/25 19: ALT 60 U/L (0-33) H 03/07/25 19: Alkaline Phosphatase 59 U/L (35-105) 03/07/25 19: Total Protein 7.2 g/dL (6.6-8.7) 03/07/25: Albumin 4.6 g/dL (3.5-5.2) 03/07/25 19: Globulin 2.6 g/dL (1.3-4.6) 03/07/25 19: HCG, Qual Negative (Negative) 03/07/25: Ser , Semi-Qnt 390.20 mIU/mL 03/07/25: Urine Color Yellow (Yellow) 03/07/25 19: Urine Appearance Clear (CLEAR) 03/07/25 19: Urine pH 6.0 (5-7) 03/07/25 19: Ur Specific [place] 1.022 (1.005-1.030) 03/07/25 19: Urine Protein Negative (Negative) 03/07/25 19: Urine Glucose (UA) Negative (Normal) 03/07/25 19: Urine Ketones Negative (Negative) 03/07/25 19: Urine Blood Negative (Negative) 03/07/25 19: Urine Nitrate Negative (Negative) 03/07/25 19: Urine Bilirubin Negative (Negative) 03/07/25 19: Urine Urobilinogen 0.2 mg/dL (Negative) 03/07/25 19: Ur Leukocyte Esterase Negative (Negative) 03/07/25 19: Urine RBC 0-2 /hpf (0-2) 03/07/25 19: Urine WBC 0-5 /hpf (0-5) 03/07/25: Ur Squamous Epith Cells 0-5 /hpf (0-5) 03/07/25: Amorphous Sediment Not Reportable 03/07/25: Urine Bacteria None seen /hpf (NONE) 03/07/25: Hyaline Casts 0-4 /lpf H 03/07/25 19: Rho(D) Type Rh positive 03/07/25 19:27 All radiology interpretation(s) finalized by discharge Discharge Plan Discharge Patient Disposition: Home Clinical Impression: Abdominal pain in early Condition: Stable Prescriptions: New ondansetron 4 mg tablet,disintegrating 4 mg PO TID PRN (Reason: nausea and vomiting) 5 Days Qty: 14 0RF Discharge Orders: Discharge ED (Routine); Ordered 03/07/25 Ordered By: Enrique Nathan Discharge Diet: Usual diet Discharge Activity: Increase activity as tolerated Patient Instructions: Abdominal Pain (ED), Opioid Safety, Pain Management, Patient Portal & Kay[place] Instructions Activity Restrictions/Additional Instructions: You were seen for your back pain in setting of your recent test, you were evaluated with labs and an ultrasound which found no evidence of anything outside the uterus response was to be in your hormone is at 390 today, it is still too early to tell definitively whether this will be a spontaneous miscarriage or a viable . To best to further assess for this, it would be best in about 5 to 7 days time if you get this blood test repeated 1 more time for further clarification. Use the Zofran, 4 mg every 8 hours as needed for nausea. In the meantime, return to the ED with any sudden severe abdominal or back pain, continuous vomiting, fevers, heavy vaginal bleeding, or any other emergent concerns. 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
[2025-03-07 19:22] LABS: Glucose Urine UA Negative (Normal); Nitrate Urine Negative (Negative); Specific Gravity, Urine 1.022 (1.005-1.030)
[2025-03-07 19:23] LABS: HCG Qualitative Urine. Negative (Negative)
[2025-03-07 19:25] LABS: Add Urine Microscopic? YES
[2025-03-07 19:29] VITALS: BP 98/71; PULSE 88; RESP 18; O2SAT 98
[2025-03-07 19:33] LABS: Hematocrit 37.8 % (36-47); Hemoglobin 12.50 g/dL (11.27-16.99); Mean Corpuscular HGB Conc 33.1 g/dL (30-55); Mean Corpuscular Hemoglobin 28.8 pg (27-33); Mean Corpuscular Volume 87.1 fl (85-98); Nucleated Red Blood Cells % 0 %; Platelet Count 360 10^3/cmm (157-399); Red Blood Count 4.34 10^6/uL (3.85-5.65); White Blood Count 8.10 10^3/uL (3.29-11.43)
[2025-03-07 20:47] LABS: Alanine Aminotransferase 60 U/L (0-33); Albumin Level 4.6 g/dL (3.5-5.2); Alkaline Phosphatase 59 U/L (35-105); Anion Gap 16.7 (5-19); Aspartate Amino Transferase 28 U/L (0-32); Blood Urea Nitrogen 12 mg/dL (6-20); Calcium 9.5 mg/dL (8.5-10.5); Carbon Dioxide 23 mmol/L (22-29); Chloride 101 mmol/L (98-107); Globulin 2.6 g/dL (1.3-4.6); Glucose 86 mg/dL (65-115); Osmolality Calculated 283 mOsm/kg (285-295); Potassium 3.7 mmol/L (3.5-5.1); Sodium 137 mmol/L (136-145); Total Protein 7.2 g/dL (6.6-8.7)
[2025-03-07 21:04] VITALS: BP 107/70; PULSE 76; RESP 16; O2SAT 97
[2025-03-07 21:05] VITALS: BP 107/70; PULSE 76; RESP 16; O2SAT 97
== END 2025-03-07 21:18 | disposition home or self-care (01) ==
PROVIDERS: Physician Assistant; Emergency Provider Student in an Organized Health Care Education/Training Program
DX: Z32.01 Encounter for pregnancy test, result positive (principal); O26.891 Other specified pregnancy related conditions, first trimester; Z3A.00 Weeks of gestation of pregnancy not specified
CPT/HCPCS: 36415; 76817; 80053; 81001; 81025; 84702; 85025; 99284; J9999